=== PATIENT | male | born 1960 | race Caucasian/White ===

== ENCOUNTER 2016-10-17 17:16 | Inpatient (IN) | payer SELFPAY ==
[2016-10-17] MEDS ORDERED: LORAZEPAM INJ 2 MG/1 ML VIAL IV ONE ×3 (18:04→22:17)
[2016-10-17] MEDS ORDERED: LEVETIRACETAM 500 MG TABLET PO ONE (18:40)
--- NOTE | 2016-10-17 18:42 | ER Document Report ---
ED General - General Chief Complaint: Seizure Stated Complaint: POSSIBLE SEIZURE Time Seen by Provider: 10/17/16 18:03 Mode of Arrival: Medic Information source: Patient, Relative Notes: 54-year-old male chronic alcoholic who decided that he does not stop drinking approximately 1 day ago presents after a seizure episode today. Patient struck his face has obvious swelling to his nose. He denies any other specific pain but does have bruising all over. Patient has vomited multiple times patient has no history of seizure disorder TRAVEL OUTSIDE OF THE [place] IN LAST 30 DAYS: No - HPI Onset: Just prior to arrival Onset/Duration: Sudden Quality of pain: Achy Severity: Mild Pain Level: 1 Associated symptoms: Other Exacerbated by: Denies Relieved by: Denies Similar symptoms previously: No Recently seen / treated by doctor: No - Related Data Allergies/Adverse Reactions: No Known Allergies Allergy (Verified 05/07/12 13:43) Home Medications: Current Home Medications Doxycycline Hyclate 20 mg PO BID 10/18/16 [History] Loratadine/Pseudoephedrine Sul [Claritin-D 12 Hour Tablet] 1 tab PO Q12 PRN [History] Multivit-Min/FA/Lycopen/Lutein [Adults 50+ Multivitamin Tablet] 1 tab PO DAILY 10/18/16 [History] Naproxen Sodium [Aleve] 220 mg PO Q12 PRN 10/18/16 [History] Past Medical History - Social History Smoking Status: Never Smoker Cigarette use (# per day): No Chew tobacco use (# tins/day): No Smoking Education Provided: No Frequency of alcohol use: Heavy Drug Abuse: None Family History: Reviewed & Not Pertinent Patient has suicidal ideation: No Patient has homicidal ideation: No Renal/ Medical History: Denies: Hx Peritoneal Dialysis Surgical Hx: Negative - Immunizations Hx Diphtheria, Pertussis, Tetanus Vaccination: No Review of Systems - Review of Systems Notes: REVIEW OF SYSTEMS: CONSTITUTIONAL : Denies fever, chills, or sweats. Denies recent illness. EENT: Admits to facial injuries CARDIOVASCULAR: Denies chest pain. Denies palpitations or racing or irregular heart beat. Denies ankle edema. RESPIRATORY: Denies cough, cold, or chest congestion. Denies shortness of breath, difficulty breathing, or wheezing. GASTROINTESTINAL: Denies abdominal pain or distention. Denies nausea, vomiting , or diarrhea. Denies blood in vomitus, stools, or per rectum. Denies black, tarry stools. Denies constipation. GENITOURINARY: Denies difficulty urinating, painful urination, burning, frequency, blood in urine, or discharge. MUSCULOSKELETAL: Denies back or neck pain or stiffness. Denies joint pain or swelling. SKIN: Denies rash, lesions or sores. HEMATOLOGIC : Denies easy bruising or bleeding. LYMPHATIC: Denies swollen, enlarged glands. NEUROLOGICAL: Admits to seizure PSYCHIATRIC: Denies anxiety or stress. Denies depression, suicidal ideation, or homicidal ideation. ALL OTHER SYSTEMS REVIEWED AND NEGATIVE. Dictation was performed using [employer] voice recognition software PHYSICAL EXAMINATION: GENERAL: Obvious ecchymosis all throughout HEAD: traumatic, normocephalic. EYES: Pupils equal round and reactive to light, extraocular movements intact, sclera anicteric, conjunctiva are normal. ENT: Nasal swelling bilateral dried blood in the nasal passages NECK: Normal range of motion, supple without lymphadenopathy C-collar placed LUNGS: Breath sounds clear to auscultation bilaterally and equal. No wheezes rales or rhonchi. HEART: Regular rate and rhythm without murmurs ABDOMEN: Soft, nontender, nondistended abdomen. No guarding, no rebound. No masses appreciated. Musculoskeletal: Normal range of motion, no pitting or edema. No cyanosis. NEUROLOGICAL: Cranial nerves grossly intact. Normal speech, normal gait. Normal sensory, motor exams PSYCH: Normal mood, normal affect. SKIN: Multiple areas of ecchymosis noted Physical Exam - Vital signs Vitals: Resp BP Pulse Ox 17 143/103 H 95 10/17/16 17:47 10/17/16 17:47 10/17/16 17:47 Course - Re-evaluation Re-evalutation: 10/17/16 18:41 Patient immediately given Ativan on arrival, I would expect admission for this patient given the fact that it occurred secondary to alcohol withdrawal 10/18/16 03:25 low platelets noted , pt put on seizure precautions - Vital Signs Vital signs: Temp Pulse Resp BP Pulse Ox 90 17 106/88 H 100 10/18/16 01:25 10/18/16 01:25 10/18/16 01:25 10/18/16 01:25 - Laboratory Result Diagrams: 10/17/16 20:19 10/17/16 20:19 Laboratory results interpreted by me: 10/17/16 10/17/16 10/17/16 20:19 20:19 20:50 RBC 3.99 L Hgb 13.2 L MCV 101 H Plt Count 28 L* Seg Neutrophils % 84.3 H Lymphocytes % 5.5 L Absolute Lymphocytes 0.3 L Glucose 126 H Calcium 8.2 L Total Bilirubin 4.1 H Direct Bilirubin 1.7 H AST 230 H Alkaline Phosphatase 140 H Urine Protein 30 H Urine Ketones 20 H Urine Blood SMALL H Urine Ascorbic Acid 40 H Critical Care Note - Critical Care Note Total time excluding time spent on procedures (mins): 46 Comments: 46 minutes of critical care time spent in direct contact evaluating and reevaluating the patient, treating symptoms, reviewing labs and studies and speaking with family and consultants excluding any procedures Discharge - Discharge Clinical Impression: Seizure, low platelet Alcohol withdrawal Qualifiers: Complication of substance-induced condition: with delirium Qualified Code(s): F10.231 - Alcohol dependence with withdrawal delirium Nasal fracture Qualifiers: Encounter type: initial encounter Fracture type: closed Qualified Code(s): S02.2XXA - Fracture of nasal bones, initial encounter for closed fracture Condition: Fair Disposition: ADMITTED INPATIENT Admitting Provider: Hospitalist Unit Admitted: Telemetry
--- NOTE | 2016-10-17 19:36 | RADIOLOGY REPORT (SQ) ---
EXAM DESCRIPTION: CT HEAD WITHOUT COMPLETED DATE/TIME: 10/17/2016 7:02 pm REASON FOR STUDY: fall COMPARISON: None. TECHNIQUE: Axial images acquired through the brain without intravenous contrast. Images reviewed wi th bone, brain and subdural windows. Images stored on PACS. All CT scanners at this facility use dose modulation, iterative reconstruction, and/or weight based d osing when appropriate to reduce radiation dose to as low as reasonably achievable (ALARA). [facility]: Dose Right [facility]: CareDose [facility]: Dose Right [facility]: Teradose 4D [facility]: [employer] RADIATION DOSE: 64.61 mGy. LIMITATIONS: None. FINDINGS: VENTRICLES: Normal size and contour. CEREBRUM: No masses. No hemorrhage. No midline shift. Normal mohr/white matter differentiation. N o evidence for acute infarction. CEREBELLUM: No masses. No hemorrhage. No alteration of density. No evidence for acute infarction. EXTRAAXIAL SPACES: No fluid collections. No masses. ORBITS AND GLOBE: No intra- or extraconal masses. Normal contour of globe without masses. CALVARIUM: No fracture. PARANASAL SINUSES: No fluid or mucosal thickening. SOFT TISSUES: No mass or hematoma. OTHER: No other significant finding. IMPRESSION: No acute intracranial finding. TECHNICAL DOCUMENTATION: JOB ID: [id number] Quality ID # [id number]: Final reports with documentation of one or more dose reduction techniques (e.g., Au tomated exposure control, adjustment of the mA and/or kV according to patient size, use of iterative reconstruction technique) 2010 [employer]- All Rights Reserved
--- NOTE | 2016-10-17 19:39 | RADIOLOGY REPORT (SQ) ---
EXAM DESCRIPTION: CT FACIAL AREA WITHOUT COMPLETED DATE/TIME: 10/17/2016 7:02 pm REASON FOR STUDY: fall COMPARISON: None. TECHNIQUE: Noncontrasted images through the facial bones and orbits windowed for bone and soft tissu e. Additional coronal and sagittal reconstructed images reviewed. All images stored on PACS. All CT scanners at this facility use dose modulation, iterative reconstruction, and/or weight based d osing when appropriate to reduce radiation dose to as low as reasonably achievable (ALARA). [facility]: Dose Right [facility]: CareDose [facility]: Dose Right [facility]: Teradose 4D [facility]: [employer] RADIATION DOSE: 30.40 mGy. LIMITATIONS: None. FINDINGS: FACIAL BONES: Small nasal bone fractures. No other fracture or bone lesion. ORBITS: Intact. No fracture. Symmetric intact globes and retroorbital soft tissues. PARANASAL SINUSES: Clear. No significant mucosal thickening, mass or fluid. No nasal polyps. Maxill madhav sinus outlets are patent. SOFT TISSUES: No mass or edema. INFERIOR BRAIN: Limited view. No acute findings. OTHER: No other significant finding. IMPRESSION: Small nasal bone fractures. TECHNICAL DOCUMENTATION: JOB ID: [id number] Quality ID # [id number]: Final reports with documentation of one or more dose reduction techniques (e.g., Au tomated exposure control, adjustment of the mA and/or kV according to patient size, use of iterative reconstruction technique) 2010 [employer]- All Rights Reserved
--- NOTE | 2016-10-17 19:44 | RADIOLOGY REPORT (SQ) ---
EXAM DESCRIPTION: CT CERVICAL SPINE WITHOUT COMPLETED DATE/TIME: 10/17/2016 7:03 pm REASON FOR STUDY: fall COMPARISON: None. TECHNIQUE: Axial images acquired through the cervical spine without intravenous contrast. Images re viewed with lung, soft tissue and bone windows. Reconstructed coronal and sagittal MPR images review ed. Images stored on PACS. All CT scanners at this facility use dose modulation, iterative reconstruction, and/or weight based d osing when appropriate to reduce radiation dose to as low as reasonably achievable (ALARA). [facility]: Dose Right [facility]: CareDose [facility]: Dose Right [facility]: Teradose 4D [facility]: [employer] RADIATION DOSE: 41.42 mGy. LIMITATIONS: None. FINDINGS: ALIGNMENT: Anatomic. MINERALIZATION: Normal. VERTEBRAL BODIES: No fractures or dislocation. DISCS: Multilevel disc space narrowing with osteophytes. FACETS, LATERAL MASSES, POSTERIOR ELEMENTS: Facet arthropathy. No fractures. No dislocation. No ac [place] findings. HARDWARE: None in the spine. VISUALIZED RIBS: No fractures. LUNG APICES AND SOFT TISSUES: No significant or acute findings. OTHER: No other significant finding. IMPRESSION: CHRONIC DEGENERATIVE CHANGES. NO ACUTE FINDINGS. TECHNICAL DOCUMENTATION: JOB ID: [id number] Quality ID # [id number]: Final reports with documentation of one or more dose reduction techniques (e.g., Au tomated exposure control, adjustment of the mA and/or kV according to patient size, use of iterative reconstruction technique) 2010 [employer]- All Rights Reserved
[2016-10-17 20:53] LABS: ABSOLUTE LYMPHOCYTES (AUTO) 0.3 10^3/uL (0.5-4.7); ABSOLUTE MONOCYTES (AUTO) 0.5 10^3/uL (0.1-1.4); ABSOLUTE NEUT (AUTO) 4.5 10^3/uL (1.7-8.2); BASOPHILS % (AUTO) 0.5 % (0-2); EOSINOPHILS % (AUTO) 0.1 % (0-6); HEMATOCRIT 40.3 % (37.9-51.0); HEMOGLOBIN 13.2 g/dL (13.5-17.0); HGB HCT DIFFERENCE -0.7; LYMPHOCYTES % (AUTO) 5.5 % (13-45); MEAN CORPUSCULAR HEMOGLOBIN 33.2 pg (27.0-33.4); MEAN CORPUSCULAR HGB CONC 32.9 g/dL (32.0-36.0); MEAN CORPUSCULAR VOLUME 101 fl (80-97); MONOCYTES % (AUTO) 9.6 % (3-13); RED BLOOD COUNT 3.99 10^6/uL (4.35-5.55); RED CELL DISTRIBUTION WIDTH 13.3 % (11.5-14.0); SEGMENTED NEUTROPHILS % (AUTO) 84.3 % (42-78); WHITE BLOOD COUNT 5.3 10^3/uL (4.0-10.5)
[2016-10-17 20:59] LABS: ALANINE AMINOTRANSFERASE 61 U/L (21-72); ALBUMIN 3.5 g/dL (3.5-5.0); ALKALINE PHOSPHATASE 140 U/L (38-126); ANION GAP 15 (5-19); ASPARTATE AMINO TRANSFERASE 230 U/L (17-59); BILIRUBIN,DIRECT 1.7 mg/dL (0.0-0.4); BILIRUBIN,TOTAL 4.1 mg/dL (0.2-1.3); BLOOD UREA NITROGEN 7 mg/dL (7-20); CALCIUM 8.2 mg/dL (8.4-10.2); CARBON DIOXIDE 24 mmol/L (22-30); CHLORIDE 99 mmol/L (98-107); CREATININE RESULT 0.75 mg/dL (0.52-1.25); GLUCOSE 126 mg/dL (75-110); POTASSIUM 3.8 mmol/L (3.6-5.0); SODIUM 137.6 mmol/L (137-145)
[2016-10-17 21:01] LABS: ALCOHOL < 10 mg/dL (NONE DETECTED)
[2016-10-17 21:12] LABS: APPEARANCE,URINE SLIGHTLY-CLOUDY; BILIRUBIN,URINE NEGATIVE (NEGATIVE); GLUCOSE, URINE NEGATIVE (NEGATIVE); KETONES,URINE 20 mg/dL (NEGATIVE); LEUKOCYTE ESTERASE,URINE NEGATIVE (NEGATIVE); NITRITE,URINE NEGATIVE (NEGATIVE); PROTEIN,URINE 30 mg/dL (NEGATIVE); URINE SPECIFIC GRAVITY 1.016; UROBILINOGEN,URINE NEGATIVE mg/dL (<2.0)
[2016-10-17 21:18] LABS: BACTERIA,URINE 1+ /HPF
[2016-10-17 21:25] LABS: URINE BARBITURATES SCREEN NEGATIVE; URINE METHADONE SCREEN NEGATIVE; URINE OPIATES LOW NEGATIVE; URINE PHENCYCLIDINE SCREEN NEGATIVE
[2016-10-17] MEDS ORDERED: ONDANSETRON HCL INJ/PF 4 MG/2 ML SDV IV PRN (22:24)
[2016-10-17] MEDS ORDERED: MAG HYDROX/AL HYDROX/SIMETH SUSP 30 ML UDCUP PO PRN (22:24)
[2016-10-17] MEDS ORDERED: IPRATROPIUM/ALBUTEROL 0.5-2.5 MG/3 ML AMPUL NEB PRN (22:24)
[2016-10-17] MEDS ORDERED: THIAMINE HCL 100 MG, FOLIC ACID 1 MG in NORMAL SALINE 50 ML IV SCH (22:30)
--- NOTE | 2016-10-17 22:42 | PDOC H&P ---
History of Present Illness Admission Date/PCP: FRANK RIVERA MD Patient complains of: Seizure History of Present Illness: ODALYS GUTIERREZ is a 55 year old male with a past medical history of alcohol dependence who had abruptly discontinued alcohol 48 hours ago after recurrent falls. Patient presents to the emergency room after a seizure resulting in a fall striking his face to the floor resulting in nasal bone fracture by CT. In the emergency room is also found to be postictal, severely tremulous and a platelet count of 28 he is referred to the hospitalist for admission. Patient states he has had alcohol withdrawal in the past. Social History Information Source: Patient Lives with: Grandparent(s) Smoking Status: Never Smoker Frequency of Alcohol Use: Heavy - Advance Directive Resuscitation Status: Full Code Family History Family History: Hypertension Parental Family History Reviewed: Yes Children Family History Reviewed: Yes Sibling(s) Family History Reviewed.: Yes Medication/Allergy Home Medications: Disulfiram [Antabuse 250 Mg Tablet] 250 mg PO DAILY 05/07/12 Tramadol HCl [Ultram 50 mg Tablet] 50 mg PO ASDIR PRN #20 tablet 05/07/12 Allergies/Adverse Reactions: No Known Allergies Allergy (Verified 05/07/12 13:43) Review of Systems Constitutional: PRESENT: anorexia, weakness Eyes: PRESENT: other - Conjunctivitis Ears: ABSENT: hearing changes Cardiovascular: ABSENT: chest pain, dyspnea on exertion, edema, orthropnea, palpitations Respiratory: ABSENT: cough, hemoptysis Gastrointestinal: ABSENT: abdominal pain, constipation, diarrhea, hematemesis, hematochezia, nausea, vomiting Genitourinary: ABSENT: dysuria, hematuria Musculoskeletal: PRESENT: other - Ataxia Integumentary: PRESENT: other - Ecchymosis of various stages of healing throughout Neurological: PRESENT: other - Ataxia Psychiatric: PRESENT: anxiety Hematologic/Lymphatic: PRESENT: easy bruising Physical Exam Vital Signs: Temp Pulse Resp BP Pulse Ox 109 H 20 136/94 H 95 10/17/16 18:40 10/17/16 18:40 10/17/16 18:40 10/17/16 18:40 Intake & Output 10/16/16 10/17/16 10/18/16 11:59 11:59 11:59 Weight 72.575 kg General appearance: PRESENT: cooperative, disheveled, severe distress, thin Head exam: PRESENT: other - Trauma to the face with periorbital edema, swollen nose with a right sided deviation Eye exam: PRESENT: EOMI, periorbital swelling, PERRLA, other - Purulent discharge to the conjunctiva bilaterally Ear exam: PRESENT: normal external ear exam Mouth exam: PRESENT: moist, tongue midline Neck exam: ABSENT: carotid bruit, JVD, lymphadenopathy, thyromegaly Respiratory exam: PRESENT: clear to auscultation zoran. ABSENT: rales, rhonchi, wheezes Cardiovascular exam: PRESENT: RRR. ABSENT: diastolic murmur, rubs, systolic murmur Pulses: PRESENT: normal dorsalis pedis pul Vascular exam: PRESENT: normal capillary refill GI/Abdominal exam: PRESENT: normal bowel sounds, soft. ABSENT: distended, guarding, mass, organolmegaly, rebound, tenderness Rectal exam: PRESENT: deferred Extremities exam: PRESENT: full ROM. ABSENT: calf tenderness, clubbing, pedal edema Musculoskeletal exam: PRESENT: other - Poor coordination and tremor throughout Neurological exam: PRESENT: alert, ataxia, CN II-XII grossly intact Psychiatric exam: PRESENT: agitated, anxious Skin exam: PRESENT: intact, other - Ecchymosis throughout that various stages of healing denying abuse Results Laboratory Results: 10/17/16 20:19 10/17/16 20:19 10/17/16 10/17/16 10/17/16 20:19 20:19 20:50 WBC 5.3 RBC 3.99 L Hgb 13.2 L Hct 40.3 MCV 101 H MCH 33.2 MCHC 32.9 RDW 13.3 Plt Count 28 L* Seg Neutrophils % 84.3 H Lymphocytes % 5.5 L Monocytes % 9.6 Eosinophils % 0.1 Basophils % 0.5 Absolute Neutrophils 4.5 Absolute Lymphocytes 0.3 L Absolute Monocytes 0.5 Absolute Eosinophils 0.0 Absolute Basophils 0.0 Sodium 137.6 Potassium 3.8 Chloride 99 Carbon Dioxide 24 Anion Gap 15 BUN 7 Creatinine 0.75 Est GFR ( Amer) > 60 Est GFR (Non-Af Amer) > 60 Glucose 126 H Calcium 8.2 L Total Bilirubin 4.1 H AST 230 H ALT 61 Alkaline Phosphatase 140 H Total Protein 7.0 Albumin 3.5 Urine Color YELLOW Urine Appearance SLIGHTLY-CLOUDY Urine pH 5.0 Ur Specific Mineral 1.016 Urine Protein 30 H Urine Glucose (UA) NEGATIVE Urine Ketones 20 H Urine Blood SMALL H Urine Nitrite NEGATIVE Ur Leukocyte Esterase NEGATIVE Impressions: Cervical Spine CT 10/17/16 18:04 IMPRESSION: CHRONIC DEGENERATIVE CHANGES. NO ACUTE FINDINGS. Facial Bones CT 10/17/16 18:04 IMPRESSION: Small nasal bone fractures. Head CT 10/17/16 18:04 IMPRESSION: No acute intracranial finding. Assessment & Plan - Diagnosis (1) Alcohol withdrawal Qualifiers: Complication of substance-induced condition: with delirium Qualified Code(s): F10.231 - Alcohol dependence with withdrawal delirium Is this a current diagnosis for this admission?: YesPlan: Patient initiated abrupt cessation of heavy alcohol consumption 48 hours ago resulting in alcohol withdrawal seizure. He is placed on D5 half-normal with 20 potassium, thiamine and folate, scheduled and as needed Ativan. Consider referral to outpatient rehab. (2) Thrombocytopenia Is this a current diagnosis for this admission?: YesPlan: Undoubtedly secondary to alcohol. Reevaluate CBC (3) Ataxia Is this a current diagnosis for this admission?: YesPlan: Concern for neuropathy and Wernicke's encephalopathy. Dextrose, thiamine and folate initiated will require physical therapy. (4) Nasal fracture Is this a current diagnosis for this admission?: YesPlan: Supportive care, ENT follow-up (5) Seizure Is this a current diagnosis for this admission?: YesPlan: Secondary to abrupt alcohol cessation he has been loaded with Keppra will continue scheduled Ativan. - Time Time Spent: 50 to 70 Minutes - Inpatient Certification Medical Necessity: Need Close Monitoring Due to Risk of Patient Decompensation
[2016-10-17 23:14] LABS: PROTHROMBIN TIME 15.4 SEC (11.4-15.4)
[2016-10-17 23:21] LABS: PHOSPHORUS 2.8 mg/dL (2.5-4.5)
[2016-10-17] MEDS ORDERED: POTASSI CL 20 MEQ/D5-1/2NS 1L 1,000 ML IV ONE (23:59)
[2016-10-18] MEDS: LORAZEPAM INJ 2 MG/1 ML VIAL IV SCH ×5 (00:05→23:43)
[2016-10-18] MEDS ORDERED: FOLIC ACID INJ 5 MG/1 ML 10 ML VIAL ONE (03:02)
[2016-10-18] MEDS ORDERED: THIAMINE HCL INJ 200 MG/2 ML VIAL ONE (03:03)
[2016-10-18 05:14] LABS: ABSOLUTE LYMPHOCYTES (AUTO) 0.6 10^3/uL (0.5-4.7); ABSOLUTE MONOCYTES (AUTO) 0.5 10^3/uL (0.1-1.4); ABSOLUTE NEUT (AUTO) 2.6 10^3/uL (1.7-8.2); BASOPHILS % (AUTO) 0.5 % (0-2); EOSINOPHILS % (AUTO) 0.2 % (0-6); HEMATOCRIT 38.3 % (37.9-51.0); HEMOGLOBIN 12.8 g/dL (13.5-17.0); HGB HCT DIFFERENCE 0.1; LYMPHOCYTES % (AUTO) 16.5 % (13-45); MEAN CORPUSCULAR HEMOGLOBIN 33.7 pg (27.0-33.4); MEAN CORPUSCULAR HGB CONC 33.4 g/dL (32.0-36.0); MEAN CORPUSCULAR VOLUME 101 fl (80-97); MONOCYTES % (AUTO) 13.1 % (3-13); RED CELL DISTRIBUTION WIDTH 12.8 % (11.5-14.0); SEGMENTED NEUTROPHILS % (AUTO) 69.7 % (42-78); WHITE BLOOD COUNT 3.7 10^3/uL (4.0-10.5)
[2016-10-18 05:20] LABS: ALANINE AMINOTRANSFERASE 57 U/L (21-72); ALBUMIN 3.1 g/dL (3.5-5.0); ALKALINE PHOSPHATASE 120 U/L (38-126); ANION GAP 9 (5-19); ASPARTATE AMINO TRANSFERASE 216 U/L (17-59); BILIRUBIN,DIRECT 1.5 mg/dL (0.0-0.4); BILIRUBIN,TOTAL 3.6 mg/dL (0.2-1.3); BLOOD UREA NITROGEN 8 mg/dL (7-20); CARBON DIOXIDE 25 mmol/L (22-30); CHLORIDE 104 mmol/L (98-107); CREATININE RESULT 0.71 mg/dL (0.52-1.25); GLUCOSE 119 mg/dL (75-110); POTASSIUM 3.5 mmol/L (3.6-5.0); SODIUM 138.4 mmol/L (137-145); TOTAL PROTEIN 6.2 g/dL (6.3-8.2)
[2016-10-18] MEDS: DOCUSATE SODIUM 100 MG CAPSULE PO SCH ×2 (09:50→17:55)
[2016-10-18 16:55] LABS: ADD HIVPANEL? NO; HIV (1 AND 2) ANTIBODY NEGATIVE (NEGATIVE)
--- NOTE | 2016-10-18 17:06 | PDOC PROGRESS REPORT ---
Subjective Progress Note for:: 10/18/16 Subjective:: Patient is quite tremulous when I see him. Report that he would like to stop drinking. His last drink was on . As chest pain, shortness of breath, rash, diarrhea, upper respiratory infection. Physical Exam Vital Signs: Temp Pulse Resp BP Pulse Ox 98.6 F 92 18 114/72 94 10/18/16 11:54 10/18/16 11:54 10/18/16 11:54 10/18/16 11:54 10/18/16 11:54 Intake & Output 10/17/16 10/18/16 10/19/16 06:59 06:59 06:59 Intake Total 51 Balance 51 Weight 77.3 kg Exam: GENERAL: older than stated age appearing, chronically ill-appearing HEENT: Bilateral orbital ecchymosis, nasal bridge deformity with dried blood, perioral area with dried blood, asymmetric tongue swelling more right sided than left with associated bite desmond, slight icteric, moist mucous membranes, no JVD, midline trachea RESPIRATORY: Clear to auscultation bilaterally, no wheezes, no rhonchi CARDIAC: Regular rate and rhythm, no murmurs/gallops/rubs ABDOMEN: Soft, nondistended, NTTP hyperactive bowel sounds, no rebound, no guarding EXTREMETIES: No edema, cyanosis, clubbing NEUROLOGIC: Alert, oriented to person/place, CN's grossly intact, tremulous PSYCH: Normal mood, normal affect Results Laboratory Results: 10/18/16 03:58 10/18/16 03:58 10/17/16 10/18/16 10/18/16 23:00 03:58 03:58 WBC 3.7 L RBC 3.80 L Hgb 12.8 L Hct 38.3 MCV 101 H MCH 33.7 H MCHC 33.4 RDW 12.8 Plt Count 24 L* Seg Neutrophils % 69.7 Lymphocytes % 16.5 Monocytes % 13.1 H Eosinophils % 0.2 Basophils % 0.5 Absolute Neutrophils 2.6 Absolute Lymphocytes 0.6 Absolute Monocytes 0.5 Absolute Eosinophils 0.0 Absolute Basophils 0.0 Sodium 138.4 Potassium 3.5 L Chloride 104 Carbon Dioxide 25 Anion Gap 9 BUN 8 Creatinine 0.71 Est GFR ( Amer) > 60 Est GFR (Non-Af Amer) > 60 Glucose 119 H Calcium 8.0 L Phosphorus 2.8 Magnesium 2.0 Total Bilirubin 3.6 H AST 216 H ALT 57 Alkaline Phosphatase 120 Total Protein 6.2 L Albumin 3.1 L Impressions: Cervical Spine CT 10/17/16 18:04 IMPRESSION: CHRONIC DEGENERATIVE CHANGES. NO ACUTE FINDINGS. Facial Bones CT 10/17/16 18:04 IMPRESSION: Small nasal bone fractures. Head CT 10/17/16 18:04 IMPRESSION: No acute intracranial finding. Assessment & Plan - Diagnosis (1) Alcohol withdrawal seizure with complication Qualifiers: Complication of substance-induced condition: with perceptual disturbance Qualified Code(s): F10.232 - Alcohol dependence with withdrawal with perceptual disturbance Is this a current diagnosis for this admission?: YesPlan: Patient on scheduled Ativan as well as as needed Ativan. Patient on thiamine, folic acid, and multivitamin. Concern for arrhythmia continue telemetry monitoring Monitor electrolytes, seizure precautions and sitter. (2) Leukopenia Qualifiers: Leukopenia type: unspecified Qualified Code(s): D72.819 - Decreased white blood cell count, unspecified Is this a current diagnosis for this admission?: YesPlan: 2/2 to alcohol abuse (3) Ataxia Is this a current diagnosis for this admission?: YesPlan: #4 Wernicke's consider repeating CT of the head (4) Nasal fracture Qualifiers: Encounter type: initial encounter Fracture type: closed Qualified Code(s): S02.2XXA - Fracture of nasal bones, initial encounter for closed fracture Is this a current diagnosis for this admission?: YesPlan: Supportive care (5) Thrombocytopenia Is this a current diagnosis for this admission?: YesPlan: Patient does have petechia on his chest, but none on his abdomen or lower extremities as one would expect in ITP. He has had no antecedent illness. Patient has thrombocytopenia likely secondary to his severe alcohol abuse. Continue seizure precautions and supportive care. (6) Alcoholic cirrhosis of liver without ascites Is this a current diagnosis for this admission?: YesPlan: MELD score of 12 Encourage patient to remain abstinent. - Time Time Spent with patient: 25-34 minutes Medications reviewed and adjusted accordingly: Yes
[2016-10-18] MEDS: LORAZEPAM INJ 2 MG/1 ML VIAL IV PRN (20:19)
[2016-10-19] MEDS: NORMAL SALINE 1000 ML 1,000 ML IV PRN (02:06)
[2016-10-19] MEDS: LORAZEPAM INJ 2 MG/1 ML VIAL IV PRN ×5 (02:06→16:14)
[2016-10-19 05:24] LABS: ABSOLUTE LYMPHOCYTES (AUTO) 0.7 10^3/uL (0.5-4.7); ABSOLUTE MONOCYTES (AUTO) 0.4 10^3/uL (0.1-1.4); ABSOLUTE NEUT (AUTO) 1.8 10^3/uL (1.7-8.2); BASOPHILS % (AUTO) 0.5 % (0-2); EOSINOPHILS % (AUTO) 0.9 % (0-6); HEMATOCRIT 39.9 % (37.9-51.0); HEMOGLOBIN 13.4 g/dL (13.5-17.0); HGB HCT DIFFERENCE 0.3; LYMPHOCYTES % (AUTO) 23.1 % (13-45); MEAN CORPUSCULAR HGB CONC 33.6 g/dL (32.0-36.0); MEAN CORPUSCULAR VOLUME 101 fl (80-97); MONOCYTES % (AUTO) 14.2 % (3-13); RED BLOOD COUNT 3.94 10^6/uL (4.35-5.55); RED CELL DISTRIBUTION WIDTH 12.6 % (11.5-14.0); SEGMENTED NEUTROPHILS % (AUTO) 61.3 % (42-78); WHITE BLOOD COUNT 2.9 10^3/uL (4.0-10.5)
[2016-10-19 05:30] LABS: PROTHROMBIN TIME 16.5 SEC (11.4-15.4)
[2016-10-19 05:39] LABS: ALANINE AMINOTRANSFERASE 60 U/L (21-72); ALBUMIN 3.1 g/dL (3.5-5.0); ALKALINE PHOSPHATASE 127 U/L (38-126); ANION GAP 11 (5-19); ASPARTATE AMINO TRANSFERASE 232 U/L (17-59); BILIRUBIN,DIRECT 2.1 mg/dL (0.0-0.4); BILIRUBIN,TOTAL 4.1 mg/dL (0.2-1.3); BLOOD UREA NITROGEN 8 mg/dL (7-20); CALCIUM 7.9 mg/dL (8.4-10.2); CARBON DIOXIDE 25 mmol/L (22-30); CHLORIDE 107 mmol/L (98-107); CREATININE RESULT 0.63 mg/dL (0.52-1.25); GLUCOSE 74 mg/dL (75-110); MAGNESIUM 1.9 mg/dL (1.6-2.3); PHOSPHORUS 2.2 mg/dL (2.5-4.5); POTASSIUM 3.5 mmol/L (3.6-5.0); SODIUM 142.6 mmol/L (137-145); TOTAL PROTEIN 6.4 g/dL (6.3-8.2)
[2016-10-19] MEDS: LORAZEPAM INJ 2 MG/1 ML VIAL IV SCH ×4 (06:40→22:46)
[2016-10-19] MEDS: DOCUSATE SODIUM 100 MG CAPSULE PO SCH ×2 (09:31→18:10)
[2016-10-19] MEDS: MAGNESIUM OXIDE 400 MG TABLET PO SCH ×3 (09:31→16:15)
[2016-10-19] MEDS ORDERED: THIAMINE HCL 100 MG, FOLIC ACID 1 MG in NORMAL SALINE 50 ML IV SCH (10:00)
[2016-10-19] MEDS ORDERED: THIAMINE HCL 100 MG TABLET PO SCH (10:00)
[2016-10-19] MEDS: PHOSPHORUS #1 250 MG TABLET PO SCH ×2 (10:31→16:19)
--- NOTE | 2016-10-19 14:27 | RADIOLOGY REPORT (SQ) ---
EXAM DESCRIPTION: CT HEAD WITHOUT COMPLETED DATE/TIME: 10/19/2016 2:14 pm REASON FOR STUDY: ams, fall with thrombocytopenia COMPARISON: 10/17/2016 TECHNIQUE: Axial images acquired through the brain without intravenous contrast. Images reviewed wi th bone, brain and subdural windows. Images stored on PACS. All CT scanners at this facility use dose modulation, iterative reconstruction, and/or weight based d osing when appropriate to reduce radiation dose to as low as reasonably achievable (ALARA). [facility]: Dose Right [facility]: CareDose [facility]: Dose Right [facility]: Teradose 4D [facility]: [employer] RADIATION DOSE: 64.61 mGy. LIMITATIONS: None. FINDINGS: VENTRICLES: Normal size and contour. CEREBRUM: No masses. No hemorrhage. No midline shift. Normal mohr/white matter differentiation. N o evidence for acute infarction. CEREBELLUM: No masses. No hemorrhage. No alteration of density. No evidence for acute infarction. EXTRAAXIAL SPACES: No fluid collections. No masses. ORBITS AND GLOBE: No intra- or extraconal masses. Normal contour of globe without masses. CALVARIUM: No fracture. PARANASAL SINUSES: No fluid or mucosal thickening. SOFT TISSUES: No mass or hematoma. OTHER: No other significant finding. IMPRESSION: NORMAL BRAIN CT WITHOUT CONTRAST. TECHNICAL DOCUMENTATION: JOB ID: [id number] Quality ID # [id number]: Final reports with documentation of one or more dose reduction techniques (e.g., Au tomated exposure control, adjustment of the mA and/or kV according to patient size, use of iterative reconstruction technique) 2010 [employer]- All Rights Reserved
--- NOTE | 2016-10-19 15:17 | EKG REPORT ---
SEVERITY:- NORMAL ECG - SINUS RHYTHM : Confirmed by: Juan Alston 19-Oct-2016 15:15:48
--- NOTE | 2016-10-19 16:22 | PDOC PROGRESS REPORT ---
Subjective Progress Note for:: 10/19/16 Subjective:: Unable to obtain review of systems secondary to alcohol withdrawl. Physical Exam Vital Signs: Temp Pulse Resp BP Pulse Ox 97.3 F 91 16 132/73 H 96 10/19/16 11:03 10/19/16 11:03 10/19/16 11:03 10/19/16 11:03 10/19/16 11:03 Intake & Output 10/18/16 10/19/16 10/20/16 06:59 06:59 06:59 Intake Total 51 1020 620 Output Total 500 Balance 51 1020 120 Weight 77.3 kg 74.4 kg Exam: GENERAL: older than stated age appearing, chronically ill-appearing HEENT: Bilateral orbital ecchymosis, nasal bridge deformity with dried blood, perioral area with dried blood, slight icteric, moist mucous membranes, no JVD, midline trachea RESPIRATORY: Clear to auscultation bilaterally, no wheezes, no rhonchi CARDIAC: Regular rate and rhythm, no murmurs/gallops/rubs ABDOMEN: Soft, nondistended, NTTP hyperactive bowel sounds, no rebound, no guarding EXTREMETIES: No edema, cyanosis, clubbing NEUROLOGIC: Alert, oriented to person alone, CN's grossly intact, tremulous PSYCH: Normal mood, normal affect Results Laboratory Results: 10/19/16 04:57 10/19/16 04:57 10/19/16 10/19/16 04:57 04:57 WBC 2.9 L RBC 3.94 L Hgb 13.4 L Hct 39.9 MCV 101 H MCH 34.0 H MCHC 33.6 RDW 12.6 Plt Count 31 L Seg Neutrophils % 61.3 Lymphocytes % 23.1 Monocytes % 14.2 H Eosinophils % 0.9 Basophils % 0.5 Absolute Neutrophils 1.8 Absolute Lymphocytes 0.7 Absolute Monocytes 0.4 Absolute Eosinophils 0.0 Absolute Basophils 0.0 Sodium 142.6 Potassium 3.5 L Chloride 107 Carbon Dioxide 25 Anion Gap 11 BUN 8 Creatinine 0.63 Est GFR ( Amer) > 60 Est GFR (Non-Af Amer) > 60 Glucose 74 L Calcium 7.9 L Phosphorus 2.2 L Magnesium 1.9 Total Bilirubin 4.1 H AST 232 H ALT 60 Alkaline Phosphatase 127 H Total Protein 6.4 Albumin 3.1 L Impressions: Cervical Spine CT 10/17/16 18:04 IMPRESSION: CHRONIC DEGENERATIVE CHANGES. NO ACUTE FINDINGS. Facial Bones CT 10/17/16 18:04 IMPRESSION: Small nasal bone fractures. Head CT 10/19/16 00:00 IMPRESSION: NORMAL BRAIN CT WITHOUT CONTRAST. Assessment & Plan - Diagnosis (1) Alcohol withdrawal seizure with complication Qualifiers: Complication of substance-induced condition: with perceptual disturbance Qualified Code(s): F10.232 - Alcohol dependence with withdrawal with perceptual disturbance Is this a current diagnosis for this admission?: YesPlan: Patient continues to have Perceptual disturbance including hallucinations. Patient on scheduled Ativan as well as as needed Ativan. Patient on thiamine, folic acid, and multivitamin. Monitor electrolytes, seizure precautions and sitter. (2) Leukopenia Qualifiers: Leukopenia type: unspecified Qualified Code(s): D72.819 - Decreased white blood cell count, unspecified Is this a current diagnosis for this admission?: YesPlan: 2/2 to alcohol abuse Improving (3) Ataxia Is this a current diagnosis for this admission?: YesPlan: Concern for Wernicke's. Repeat CT reveals no delayed bleeding. Place on high dose IV thiamine. (4) Nasal fracture Qualifiers: Encounter type: initial encounter Fracture type: closed Qualified Code(s): S02.2XXA - Fracture of nasal bones, initial encounter for closed fracture Is this a current diagnosis for this admission?: Yes (5) Thrombocytopenia Is this a current diagnosis for this admission?: YesPlan: Patient has thrombocytopenia likely secondary to his severe alcohol abuse. Continue seizure precautions and supportive care. Have considered other eitologies although less likely including ITP, TTP, drug induced. HIV is negative. (6) Alcoholic cirrhosis of liver without ascites Is this a current diagnosis for this admission?: YesPlan: MELD score of 14. This give patient a 90 day mortality rate of 6%. Encourage patient to remain abstinent. - Time Time Spent with patient: 25-34 minutes Medications reviewed and adjusted accordingly: Yes
[2016-10-19] MEDS: TEMAZEPAM 15 MG CAPSULE PO SCH (22:11)
[2016-10-20] MEDS: LORAZEPAM INJ 2 MG/1 ML VIAL IV PRN (04:14)
[2016-10-20 05:25] LABS: ABSOLUTE LYMPHOCYTES (AUTO) 0.5 10^3/uL (0.5-4.7); ABSOLUTE MONOCYTES (AUTO) 0.4 10^3/uL (0.1-1.4); ABSOLUTE NEUT (AUTO) 2.1 10^3/uL (1.7-8.2); EOSINOPHILS % (AUTO) 1.2 % (0-6); HEMATOCRIT 39.4 % (37.9-51.0); HEMOGLOBIN 13.5 g/dL (13.5-17.0); HGB HCT DIFFERENCE 1.1; LYMPHOCYTES % (AUTO) 17.6 % (13-45); MEAN CORPUSCULAR HGB CONC 34.1 g/dL (32.0-36.0); MEAN CORPUSCULAR VOLUME 100 fl (80-97); RED BLOOD COUNT 3.96 10^6/uL (4.35-5.55); RED CELL DISTRIBUTION WIDTH 12.5 % (11.5-14.0); SEGMENTED NEUTROPHILS % (AUTO) 68.2 % (42-78); WHITE BLOOD COUNT 3.1 10^3/uL (4.0-10.5)
[2016-10-20 05:36] LABS: ALANINE AMINOTRANSFERASE 57 U/L (21-72); ALKALINE PHOSPHATASE 126 U/L (38-126); ANION GAP 12 (5-19); ASPARTATE AMINO TRANSFERASE 180 U/L (17-59); BILIRUBIN,DIRECT 2.4 mg/dL (0.0-0.4); BILIRUBIN,TOTAL 3.8 mg/dL (0.2-1.3); BLOOD UREA NITROGEN 6 mg/dL (7-20); CALCIUM 7.6 mg/dL (8.4-10.2); CARBON DIOXIDE 24 mmol/L (22-30); CHLORIDE 103 mmol/L (98-107); CREATININE RESULT 0.58 mg/dL (0.52-1.25); GLUCOSE 129 mg/dL (75-110); POTASSIUM 3.4 mmol/L (3.6-5.0); SODIUM 138.8 mmol/L (137-145); TOTAL PROTEIN 6.4 g/dL (6.3-8.2)
[2016-10-20] MEDS: LORAZEPAM INJ 2 MG/1 ML VIAL IV SCH ×3 (05:55→17:22)
[2016-10-20] MEDS ORDERED: NORMAL SALINE IV ONE (08:00)
[2016-10-20] MEDS ORDERED: THIAMINE HCL IV ONE (08:00)
[2016-10-20] MEDS ORDERED: ONDANSETRON HCL INJ/PF 4 MG/2 ML SDV IV PRN (08:23)
[2016-10-20] MEDS ORDERED: MAG HYDROX/AL HYDROX/SIMETH SUSP 30 ML UDCUP PO PRN (08:25)
[2016-10-20] MEDS ORDERED: POTASSIUM CHLORIDE 10 MEQ TABLET.SA PO ONE (08:30)
[2016-10-20] MEDS: NORMAL SALINE 1000 ML 1,000 ML IV PRN (10:12)
[2016-10-20] MEDS: PHOSPHORUS #1 250 MG TABLET PO SCH ×3 (10:12→17:21)
[2016-10-20] MEDS: DOCUSATE SODIUM 100 MG CAPSULE PO SCH ×2 (10:12→17:22)
[2016-10-20] MEDS: MAGNESIUM OXIDE 400 MG TABLET PO SCH ×3 (10:12→17:22)
[2016-10-20] MEDS: FOLIC ACID 1 MG TABLET PO SCH (10:12)
[2016-10-20] MEDS: THIAMINE HCL 500 MG in NORMAL SALINE 50 ML IV SCH (10:47)
--- NOTE | 2016-10-20 16:51 | PDOC PROGRESS REPORT ---
Subjective Progress Note for:: 10/20/16 Subjective:: Patient denies chest pain, shortness of breath, headache, nausea, fever, chills , constipation, diarrhea. Physical Exam Vital Signs: Temp Pulse Resp BP Pulse Ox 98.2 F 72 14 136/85 H 96 10/20/16 00:00 10/20/16 00:00 10/20/16 00:00 10/20/16 00:00 10/20/16 00:00 Intake & Output 10/19/16 10/20/16 10/21/16 06:59 06:59 06:59 Intake Total 1020 3049 Output Total 1200 Balance 1020 1849 Weight 74.4 kg 74.2 kg Exam: GENERAL: older than stated age appearing, chronically ill-appearing HEENT: Bilateral orbital ecchymosis, nasal bridge deformity with dried blood, no scleral icterus, moist mucous membranes, no JVD, midline trachea RESPIRATORY: Clear to auscultation bilaterally, no wheezes, no rhonchi CARDIAC: Regular rate and rhythm, no murmurs/gallops/rubs ABDOMEN: Soft, nondistended, NTTP hyperactive bowel sounds, no rebound, no guarding EXTREMETIES: No edema, cyanosis, clubbing NEUROLOGIC: Alert, oriented to person, place, but not year, CN's grossly intact PSYCH: Normal mood, normal affect Results Laboratory Results: 10/20/16 05:09 10/20/16 05:09 10/20/16 10/20/16 10/20/16 05:09 05:09 05:09 WBC 3.1 L RBC 3.96 L Hgb 13.5 Hct 39.4 MCV 100 H MCH 34.0 H MCHC 34.1 RDW 12.5 Plt Count 34 L Seg Neutrophils % 68.2 Lymphocytes % 17.6 Monocytes % 12.0 Eosinophils % 1.2 Basophils % 1.0 Absolute Neutrophils 2.1 Absolute Lymphocytes 0.5 Absolute Monocytes 0.4 Absolute Eosinophils 0.0 Absolute Basophils 0.0 Sodium 138.8 Potassium 3.4 L Chloride 103 Carbon Dioxide 24 Anion Gap 12 BUN 6 L Creatinine 0.58 Est GFR ( Amer) > 60 Est GFR (Non-Af Amer) > 60 Glucose 129 H Calcium 7.6 L Total Bilirubin 3.8 H AST 180 H ALT 57 Alkaline Phosphatase 126 Ammonia < 8.7 L Total Protein 6.4 Albumin 3.0 L Impressions: Cervical Spine CT 10/17/16 18:04 IMPRESSION: CHRONIC DEGENERATIVE CHANGES. NO ACUTE FINDINGS. Facial Bones CT 10/17/16 18:04 IMPRESSION: Small nasal bone fractures. Head CT 10/19/16 00:00 IMPRESSION: NORMAL BRAIN CT WITHOUT CONTRAST. Assessment & Plan - Diagnosis (1) Alcohol withdrawal seizure with complication Qualifiers: Complication of substance-induced condition: with perceptual disturbance Qualified Code(s): F10.232 - Alcohol dependence with withdrawal with perceptual disturbance Is this a current diagnosis for this admission?: YesPlan: Patient continues to have intermittant perceptual disturbance including hallucinations. Patient on scheduled Ativan as well as as needed Ativan. Patient on thiamine, folic acid, and multivitamin. Monitor electrolytes, seizure precautions and sitter. (2) Leukopenia Qualifiers: Leukopenia type: unspecified Qualified Code(s): D72.819 - Decreased white blood cell count, unspecified Is this a current diagnosis for this admission?: YesPlan: / to alcohol abuse Improving (3) Ataxia Is this a current diagnosis for this admission?: YesPlan: Concern for Wernicke's. Repeat CT reveals no delayed bleeding. On high dose IV thiamine for the next three days. Consult PT (4) Nasal fracture Qualifiers: Encounter type: initial encounter Fracture type: closed Qualified Code(s): S02.2XXA - Fracture of nasal bones, initial encounter for closed fracture Is this a current diagnosis for this admission?: Yes (5) Thrombocytopenia Is this a current diagnosis for this admission?: YesPlan: Patient has thrombocytopenia likely secondary to his severe alcohol abuse. Continue seizure precautions and supportive care. Have considered other eitologies although less likely including ITP, TTP, drug induced. HIV is negative. (6) Alcoholic cirrhosis of liver without ascites Is this a current diagnosis for this admission?: YesPlan: MELD score of 14. This give patient a 90 day mortality rate of 6%. Encourage patient to remain abstinent. - Time Time Spent with patient: 25-34 minutes Medications reviewed and adjusted accordingly: Yes Anticipated discharge: Home Within: within 72 hours
[2016-10-20 17:07] LABS: PATH REVIEW PATHOLOGIST REVIEWED
[2016-10-21] MEDS: LORAZEPAM INJ 2 MG/1 ML VIAL IV SCH ×2 (00:23→05:19)
[2016-10-21] MEDS: TEMAZEPAM 15 MG CAPSULE PO SCH ×2 (00:24→22:14)
[2016-10-21 05:35] LABS: ALANINE AMINOTRANSFERASE 55 U/L (21-72); ALBUMIN 3.3 g/dL (3.5-5.0); ALKALINE PHOSPHATASE 151 U/L (38-126); ANION GAP 14 (5-19); ASPARTATE AMINO TRANSFERASE 136 U/L (17-59); BILIRUBIN,DIRECT 2.3 mg/dL (0.0-0.4); BILIRUBIN,TOTAL 3.7 mg/dL (0.2-1.3); BLOOD UREA NITROGEN 7 mg/dL (7-20); CALCIUM 7.9 mg/dL (8.4-10.2); CARBON DIOXIDE 25 mmol/L (22-30); CHLORIDE 102 mmol/L (98-107); CREATININE RESULT 0.57 mg/dL (0.52-1.25); GLUCOSE 96 mg/dL (75-110); POTASSIUM 3.2 mmol/L (3.6-5.0); SODIUM 140.9 mmol/L (137-145); TOTAL PROTEIN 6.3 g/dL (6.3-8.2)
[2016-10-21] MEDS ORDERED: POTASSIUM CHLORIDE 10 MEQ TABLET.SA PO ONE (08:00)
[2016-10-21] MEDS: MAGNESIUM OXIDE 400 MG TABLET PO SCH ×3 (10:11→17:44)
[2016-10-21] MEDS: DOCUSATE SODIUM 100 MG CAPSULE PO SCH ×2 (10:11→17:45)
[2016-10-21] MEDS: FOLIC ACID 1 MG TABLET PO SCH (10:11)
[2016-10-21] MEDS: THIAMINE HCL 500 MG in NORMAL SALINE 50 ML IV SCH (10:11)
[2016-10-21] MEDS: PHOSPHORUS #1 250 MG TABLET PO SCH ×3 (10:11→15:35)
[2016-10-21] MEDS: POTASSIUM CHLORIDE 10 MEQ TABLET.SA PO SCH (11:00)
[2016-10-21] MEDS ORDERED: LORAZEPAM INJ 2 MG/1 ML VIAL IV SCH (12:00)
--- NOTE | 2016-10-21 16:14 | PDOC PROGRESS REPORT ---
Subjective Progress Note for:: 10/21/16 Subjective:: Patient denies chest pain, shortness of breath, headache, nausea, fever, chills , constipation, diarrhea. Physical Exam Vital Signs: Temp Pulse Resp BP Pulse Ox 98.0 F 83 14 129/81 H 97 10/21/16 00:07 10/21/16 00:07 10/21/16 00:07 10/21/16 00:07 10/21/16 00:07 Intake & Output 10/20/16 10/21/16 10/22/16 06:59 06:59 06:59 Intake Total 3049 1600 Output Total 1200 1300 Balance 1849 300 Weight 74.2 kg 73.2 kg Exam: GENERAL: older than stated age appearing, chronically ill-appearing HEENT: Bilateral orbital ecchymosis, nasal bridge deformity with dried blood, no scleral icterus, moist mucous membranes, no JVD, midline trachea RESPIRATORY: Clear to auscultation bilaterally, no wheezes, no rhonchi CARDIAC: Regular rate and rhythm, no murmurs/gallops/rubs ABDOMEN: Soft, nondistended, NTTP hyperactive bowel sounds, no rebound, no guarding EXTREMETIES: No edema, cyanosis, clubbing; right forearm palpable cord with slight erythema around IV site NEUROLOGIC: Alert, oriented to person, place, but not year, CN's grossly intact PSYCH: Normal mood, normal affect Results Laboratory Results: 10/20/16 05:09 10/21/16 04:59 10/21/16 04:59 Sodium 140.9 Potassium 3.2 L Chloride 102 Carbon Dioxide 25 Anion Gap 14 BUN 7 Creatinine 0.57 Est GFR ( Amer) > 60 Est GFR (Non-Af Amer) > 60 Glucose 96 Calcium 7.9 L Total Bilirubin 3.7 H AST 136 H ALT 55 Alkaline Phosphatase 151 H Total Protein 6.3 Albumin 3.3 L Impressions: Cervical Spine CT 10/17/16 18:04 IMPRESSION: CHRONIC DEGENERATIVE CHANGES. NO ACUTE FINDINGS. Facial Bones CT 10/17/16 18:04 IMPRESSION: Small nasal bone fractures. Head CT 10/19/16 00:00 IMPRESSION: NORMAL BRAIN CT WITHOUT CONTRAST. Assessment & Plan - Diagnosis (1) Alcohol withdrawal seizure with complication Qualifiers: Complication of substance-induced condition: with perceptual disturbance Qualified Code(s): F10.232 - Alcohol dependence with withdrawal with perceptual disturbance Is this a current diagnosis for this admission?: YesPlan: Appears is to be improved, but is not yet back to baseline. Patient on scheduled Ativan as well as as needed Ativan. Patient on thiamine, folic acid, and multivitamin. Monitor electrolytes, seizure precautions and sitter. (2) Leukopenia Qualifiers: Leukopenia type: unspecified Qualified Code(s): D72.819 - Decreased white blood cell count, unspecified Is this a current diagnosis for this admission?: YesPlan: / to alcohol abuse Improving (3) Ataxia Is this a current diagnosis for this admission?: YesPlan: Concern for Wernicke's. Repeat CT reveals no delayed bleeding. Obtain MRI. On high dose IV thiamine for the next three days. Consult PT (4) Nasal fracture Qualifiers: Encounter type: initial encounter Fracture type: closed Qualified Code(s): S02.2XXA - Fracture of nasal bones, initial encounter for closed fracture Is this a current diagnosis for this admission?: YesPlan: Supportive care (5) Thrombocytopenia Is this a current diagnosis for this admission?: YesPlan: Patient has thrombocytopenia likely secondary to his severe alcohol abuse. Continue seizure precautions and supportive care. Have considered other eitologies although less likely including ITP, TTP, drug induced. HIV is negative. (6) Alcoholic cirrhosis of liver without ascites Is this a current diagnosis for this admission?: YesPlan: MELD score of 14. This give patient a 90 day mortality rate of 6%. Encourage patient to remain abstinent. - Time Time Spent with patient: 25-34 minutes Medications reviewed and adjusted accordingly: Yes Anticipated discharge: Acute Rehab
[2016-10-21] MEDS: LORAZEPAM 1 MG TABLET PO SCH (17:45)
[2016-10-22] MEDS: LORAZEPAM 1 MG TABLET PO SCH ×4 (00:29→23:36)
[2016-10-22] MEDS: MAGNESIUM OXIDE 400 MG TABLET PO SCH ×3 (07:59→17:27)
[2016-10-22] MEDS: PHOSPHORUS #1 250 MG TABLET PO SCH ×3 (07:59→17:28)
--- NOTE | 2016-10-22 08:57 | PDOC PROGRESS REPORT ---
Subjective Progress Note for:: 10/22/16 Subjective:: Patient feels much better this morning. Patient is more awake and oriented. There is minimal shaking. Gait is still unsteady but improved. CT scans were negative for any intracranial abnormality but did reveal some nasal bone fracture. Bruises on the face relatively stable as reported. Physical Exam Vital Signs: Temp Pulse Resp BP Pulse Ox 97.8 F 81 18 128/88 H 96 10/22/16 07:40 10/22/16 07:40 10/22/16 07:40 10/22/16 07:40 10/22/16 07:40 Intake & Output 10/21/16 10/22/16 10/23/16 06:59 06:59 06:59 Intake Total 1600 1740 Output Total 1300 2350 Balance 300 -610 Weight 73.2 kg 73.2 kg General appearance: PRESENT: no acute distress, cooperative Head exam: PRESENT: normocephalic Eye exam: PRESENT: EOMI Mouth exam: PRESENT: moist, neck supple Neck exam: ABSENT: JVD Respiratory exam: PRESENT: clear to auscultation zoran. ABSENT: rhonchi, wheezes Cardiovascular exam: PRESENT: RRR, +S1, +S2. ABSENT: gallop GI/Abdominal exam: PRESENT: soft. ABSENT: distended, tenderness Extremities exam: ABSENT: pedal edema Neurological exam: PRESENT: alert, awake, oriented to situation Psychiatric exam: ABSENT: agitated Focused psych exam: ABSENT: restlessness Skin exam: PRESENT: dry, warm. ABSENT: cyanosis Results Laboratory Results: 10/20/16 05:09 10/21/16 04:59 10/21/16 04:59 Magnesium 1.7 Impressions: Cervical Spine CT 10/17/16 18:04 IMPRESSION: CHRONIC DEGENERATIVE CHANGES. NO ACUTE FINDINGS. Facial Bones CT 10/17/16 18:04 IMPRESSION: Small nasal bone fractures. Head CT 10/19/16 00:00 IMPRESSION: NORMAL BRAIN CT WITHOUT CONTRAST. Assessment & Plan - Diagnosis (1) Alcohol withdrawal seizure Qualifiers: Complication of substance-induced condition: with unspecified complication Qualified Code(s): F10.239 - Alcohol dependence with withdrawal, unspecified; R56.9 - Unspecified convulsions Is this a current diagnosis for this admission?: Yes (2) Alcoholic cirrhosis of liver without ascites Is this a current diagnosis for this admission?: Yes (3) Nasal fracture Qualifiers: Encounter type: initial encounter Fracture type: closed Qualified Code(s): S02.2XXA - Fracture of nasal bones, initial encounter for closed fracture Is this a current diagnosis for this admission?: Yes (4) Thrombocytopenia Is this a current diagnosis for this admission?: Yes (5) Hypokalemia Is this a current diagnosis for this admission?: Yes (6) Coagulopathy Is this a current diagnosis for this admission?: Yes (7) Ataxia Is this a current diagnosis for this admission?: Yes - Time Time Spent with patient: 25-34 minutes - Plan Summary Plan Summary: Patient is refusing to have the MRI. We are going to hold the study as he is improving. I am going to decrease the Ativan scheduled and continue as needed Ativan. We will recheck electrolytes and replace accordingly. We will monitor platelet count. Continue supportive care.
[2016-10-22] MEDS: DOCUSATE SODIUM 100 MG CAPSULE PO SCH ×2 (10:09→17:27)
[2016-10-22] MEDS: POTASSIUM CHLORIDE 10 MEQ TABLET.SA PO SCH (10:09)
[2016-10-22] MEDS: FOLIC ACID 1 MG TABLET PO SCH (10:10)
[2016-10-22] MEDS: THIAMINE HCL 500 MG in NORMAL SALINE 50 ML IV SCH (10:12)
[2016-10-22] MEDS: TEMAZEPAM 15 MG CAPSULE PO SCH (23:37)
[2016-10-23] MEDS: LORAZEPAM 1 MG TABLET PO SCH (05:33)
[2016-10-23 07:23] LABS: HEMATOCRIT 40.9 % (37.9-51.0); HEMOGLOBIN 13.6 g/dL (13.5-17.0); HGB HCT DIFFERENCE -0.1; MEAN CORPUSCULAR HEMOGLOBIN 34.2 pg (27.0-33.4); MEAN CORPUSCULAR HGB CONC 33.3 g/dL (32.0-36.0); MEAN CORPUSCULAR VOLUME 103 fl (80-97); RED BLOOD COUNT 3.99 10^6/uL (4.35-5.55); WHITE BLOOD COUNT 3.1 10^3/uL (4.0-10.5)
[2016-10-23] MEDS: MAGNESIUM OXIDE 400 MG TABLET PO SCH ×3 (08:12→18:10)
[2016-10-23] MEDS: PHOSPHORUS #1 250 MG TABLET PO SCH ×3 (08:12→18:11)
[2016-10-23] MEDS ORDERED: NORMAL SALINE 1000 ML 1,000 ML IV PRN (11:33)
--- NOTE | 2016-10-23 11:37 | PDOC PROGRESS REPORT ---
Subjective Progress Note for:: 10/23/16 Subjective:: Patient feels much better this morning. Patient is more awake and oriented. No tremors. Gait is still unsteady but improved. CT scans were negative for any intracranial abnormality but did reveal some nasal bone fracture. Bruises on the face relatively stable as reported. Refused MRI. Physical Exam Vital Signs: Temp Pulse Resp BP Pulse Ox 98.0 F 83 19 130/86 H 98 10/23/16 08:26 10/23/16 08:26 10/23/16 08:26 10/23/16 08:26 10/23/16 08:26 Intake & Output 10/22/16 10/23/16 10/24/16 06:59 06:59 06:59 Intake Total 1740 1193 Output Total 2350 2600 Balance -610 -1407 Weight 73.2 kg 73.2 kg General appearance: PRESENT: no acute distress, cooperative Head exam: PRESENT: normocephalic Eye exam: PRESENT: EOMI Mouth exam: PRESENT: moist, neck supple Neck exam: ABSENT: JVD Respiratory exam: PRESENT: clear to auscultation zoran. ABSENT: rhonchi, wheezes Cardiovascular exam: PRESENT: RRR. ABSENT: gallop GI/Abdominal exam: PRESENT: soft. ABSENT: distended, tenderness Extremities exam: ABSENT: pedal edema Neurological exam: PRESENT: alert, awake, oriented to person, oriented to place , oriented to time, oriented to situation Skin exam: PRESENT: dry, warm. ABSENT: cyanosis Results Laboratory Results: 10/23/16 06:43 10/22/16 09:39 10/23/16 06:43 WBC 3.1 L RBC 3.99 L Hgb 13.6 Hct 40.9 MCV 103 H MCH 34.2 H MCHC 33.3 RDW 13.0 Plt Count 92 L Impressions: Cervical Spine CT 10/17/16 18:04 IMPRESSION: CHRONIC DEGENERATIVE CHANGES. NO ACUTE FINDINGS. Facial Bones CT 10/17/16 18:04 IMPRESSION: Small nasal bone fractures. Head CT 10/19/16 00:00 IMPRESSION: NORMAL BRAIN CT WITHOUT CONTRAST. Assessment & Plan - Diagnosis (1) Alcohol withdrawal seizure Qualifiers: Complication of substance-induced condition: with unspecified complication Qualified Code(s): F10.239 - Alcohol dependence with withdrawal, unspecified; R56.9 - Unspecified convulsions Is this a current diagnosis for this admission?: Yes (2) Alcoholic cirrhosis of liver without ascites Is this a current diagnosis for this admission?: Yes (3) Nasal fracture Qualifiers: Encounter type: initial encounter Fracture type: closed Qualified Code(s): S02.2XXA - Fracture of nasal bones, initial encounter for closed fracture Is this a current diagnosis for this admission?: Yes (4) Thrombocytopenia Is this a current diagnosis for this admission?: Yes (5) Hypokalemia Is this a current diagnosis for this admission?: Yes (6) Coagulopathy Is this a current diagnosis for this admission?: Yes (7) Ataxia Is this a current diagnosis for this admission?: Yes - Time Time Spent with patient: 25-34 minutes - Plan Summary Plan Summary: D/C ativan scheduled and PRN. D/C restoril as well. Give IVF. Hopefully unsteadiness improves. Cont. PT.
[2016-10-23] MEDS: POTASSIUM CHLORIDE 10 MEQ TABLET.SA PO SCH (11:53)
[2016-10-23] MEDS: DOCUSATE SODIUM 100 MG CAPSULE PO SCH ×2 (11:54→18:10)
[2016-10-23] MEDS: FOLIC ACID 1 MG TABLET PO SCH (11:54)
[2016-10-23] MEDS: THIAMINE HCL 500 MG in NORMAL SALINE 50 ML IV SCH (11:54)
[2016-10-24] MEDS: THIAMINE HCL 500 MG in NORMAL SALINE 50 ML IV SCH (09:43)
[2016-10-24] MEDS: POTASSIUM CHLORIDE 10 MEQ TABLET.SA PO SCH (09:43)
[2016-10-24] MEDS: PHOSPHORUS #1 250 MG TABLET PO SCH ×3 (09:44→17:06)
[2016-10-24] MEDS: FOLIC ACID 1 MG TABLET PO SCH (09:44)
[2016-10-24] MEDS: MAGNESIUM OXIDE 400 MG TABLET PO SCH ×3 (09:44→17:07)
[2016-10-24] MEDS: DOCUSATE SODIUM 100 MG CAPSULE PO SCH ×2 (09:44→17:07)
--- NOTE | 2016-10-24 13:01 | PDOC PROGRESS REPORT ---
Subjective Progress Note for:: 10/24/16 Subjective:: Able to ambulate better off the benzodiazepine. Unsteadiness improved. No temperature spikes, shortness of breath, PND orthopnea. Physical Exam Vital Signs: Temp Pulse Resp BP Pulse Ox 98.9 F 76 19 137/84 H 98 10/24/16 12:04 10/24/16 12:04 10/24/16 12:04 10/24/16 12:04 10/24/16 12:04 Intake & Output 10/23/16 10/24/16 10/25/16 06:59 06:59 06:59 Intake Total 1193 1283 Output Total 2600 2400 Balance -1407 -1117 Weight 73.2 kg 73.1 kg General appearance: PRESENT: no acute distress, cooperative Head exam: PRESENT: normocephalic Eye exam: PRESENT: EOMI Mouth exam: PRESENT: moist, neck supple Respiratory exam: PRESENT: clear to auscultation zoran. ABSENT: rhonchi, wheezes Cardiovascular exam: PRESENT: RRR. ABSENT: gallop GI/Abdominal exam: PRESENT: normal bowel sounds, soft. ABSENT: distended, tenderness Extremities exam: ABSENT: pedal edema Neurological exam: PRESENT: alert, awake, oriented to situation Skin exam: PRESENT: dry, warm. ABSENT: cyanosis Results Laboratory Results: 10/23/16 06:43 10/22/16 09:39 Impressions: Cervical Spine CT 10/17/16 18:04 IMPRESSION: CHRONIC DEGENERATIVE CHANGES. NO ACUTE FINDINGS. Facial Bones CT 10/17/16 18:04 IMPRESSION: Small nasal bone fractures. Head CT 10/19/16 00:00 IMPRESSION: NORMAL BRAIN CT WITHOUT CONTRAST. Assessment & Plan - Diagnosis (1) Alcohol withdrawal seizure Qualifiers: Complication of substance-induced condition: with unspecified complication Qualified Code(s): F10.239 - Alcohol dependence with withdrawal, unspecified; R56.9 - Unspecified convulsions Is this a current diagnosis for this admission?: Yes (2) Alcoholic cirrhosis of liver without ascites Is this a current diagnosis for this admission?: Yes (3) Nasal fracture Qualifiers: Encounter type: initial encounter Fracture type: closed Qualified Code(s): S02.2XXA - Fracture of nasal bones, initial encounter for closed fracture Is this a current diagnosis for this admission?: Yes (4) Thrombocytopenia Is this a current diagnosis for this admission?: Yes (5) Hypokalemia Is this a current diagnosis for this admission?: Yes (6) Coagulopathy Is this a current diagnosis for this admission?: Yes (7) Ataxia Is this a current diagnosis for this admission?: Yes - Time Time Spent with patient: 15-24 minutes - Plan Summary Plan Summary: Continue to increase ambulation, we will set up for home health for PT on discharge. possible discharge in the morning.
[2016-10-24] MEDS ORDERED: NORMAL SALINE 1000 ML 1,000 ML IV PRN (13:02)
[2016-10-25] MEDS: MAGNESIUM OXIDE 400 MG TABLET PO SCH ×2 (08:11→11:46)
[2016-10-25] MEDS: PHOSPHORUS #1 250 MG TABLET PO SCH ×2 (08:11→11:46)
[2016-10-25] MEDS: POTASSIUM CHLORIDE 10 MEQ TABLET.SA PO SCH (09:16)
[2016-10-25] MEDS: FOLIC ACID 1 MG TABLET PO SCH (09:16)
[2016-10-25] MEDS: THIAMINE HCL 500 MG in NORMAL SALINE 50 ML IV SCH (09:16)
[2016-10-25] MEDS: DOCUSATE SODIUM 100 MG CAPSULE PO SCH (09:16)
--- NOTE | 2016-10-25 14:21 | PDOC DISCHARGE SUMMARY ---
General - Admit/Disc Date/PCP Admission Date/Primary Care Provider: 10/17/16 22:24 FRANK RIVERA MD Discharge Date: 10/25/16 - Discharge Diagnosis (1) Alcohol withdrawal seizure Is this a current diagnosis for this admission?: Yes (2) Alcoholic cirrhosis of liver without ascites Is this a current diagnosis for this admission?: Yes (3) Nasal fracture Is this a current diagnosis for this admission?: Yes (4) Thrombocytopenia Is this a current diagnosis for this admission?: Yes (5) Hypokalemia Is this a current diagnosis for this admission?: Yes (6) Coagulopathy Is this a current diagnosis for this admission?: Yes (7) Ataxia Is this a current diagnosis for this admission?: Yes - Additional Information Resuscitation Status: Full Code Discharge Diet: Regular Discharge Activity: Activity As Tolerated, Balance Activity w/Rest Home Medications: Disulfiram [Antabuse 250 mg Tablet] 250 mg PO DAILY 10/18/16 Folic Acid [Folvite 1 mg Tablet] 1 mg PO DAILY #30 tablet 10/25/16 Multivitamin [Daily Multiple Vitamin] 1 each PO DAILY #30 tablet 10/25/16 Thiamine HCl [Thiamine 100 mg Tablet] 100 mg PO DAILY #30 tablet 10/25/16 Additional Information: Stop alcohol. Alcohol rehabilitation program or facility of choice. History of Present Illness Patient complains of: Seizure History of Present Illness: ODALYS GUTIERREZ is a 55 year old male with a past medical history of alcohol dependence who had abruptly discontinued alcohol 48 hours ago after recurrent falls. Patient presents to the emergency room after a seizure resulting in a fall striking his face to the floor resulting in nasal bone fracture by CT. In the emergency room is also found to be postictal, severely tremulous and a platelet count of 28 he is referred to the hospitalist for admission. Patient states he has had alcohol withdrawal in the past. For details please refer to history and physical examination performed by the admitting physician. Hospital Course Hospital Course: The patient was admitted to telemetry. The patient was started on IV hydration with saline and supplements with thiamine as well as folic acid and multivitamin. The patient was placed on scheduled Ativan and as needed intravenously. Patient had episode of withdrawal from alcohol that eventually improve with time. No more seizure episodes were noted. The patient had a CT of the head showing some small fracture in the nasal bone. Cervical spine CT was likewise negative for fracture. The patient's withdrawal symptoms improved and he was begun on physical therapy. Apparently the patient complains of unsteady gait and therefore a follow-up CT scan of the brain was obtained which did not reveal any intracranial acute abnormality. MRI was ordered apparently the patient refused. Physical therapy was instituted. His withdrawal symptoms resolved. He was recommended to have subacute rehab but likewise the patient refused as he stated he does not have means of payment for the rehabilitation facility. At this point the patient's probably related to Ativan scheduled and therefore this was discontinued. Patient was maintained on IV hydration and eventually after discontinuation of benzodiazepine the patient's gait and mobility improved significantly. Patient was able to ambulate better with a walker. The rest of the hospital stays unremarkable. Patient wanting to go home instead of rehabilitation facility. Family was agreeable with the plan as well. paraplanner was consulted. Front-wheeled walker was given, patient referred to home health for physical therapy. Patient and family given information regarding alcohol rehabilitation program as well. The rest of the hospital stays unremarkable. Physical Exam Vital Signs: Temp Pulse Resp BP Pulse Ox 98.9 F 79 16 118/76 96 10/25/16 11:11 10/25/16 11:11 10/25/16 11:11 10/25/16 11:11 10/25/16 11:11 Intake & Output 10/24/16 10/25/16 10/26/16 06:59 06:59 06:59 Intake Total 1283 3485 Output Total 2400 500 Balance -1117 2985 Weight 73.1 kg 73 kg General appearance: PRESENT: no acute distress, cooperative, other - Bruises on the face stable Head exam: PRESENT: normocephalic Eye exam: PRESENT: EOMI, PERRLA Mouth exam: PRESENT: moist, neck supple Neck exam: ABSENT: JVD Respiratory exam: PRESENT: clear to auscultation zoran. ABSENT: rhonchi, wheezes Cardiovascular exam: PRESENT: RRR. ABSENT: gallop GI/Abdominal exam: PRESENT: normal bowel sounds, soft. ABSENT: distended, tenderness Extremities exam: ABSENT: pedal edema Neurological exam: PRESENT: alert, awake, oriented to person, oriented to place , oriented to time, oriented to situation Psychiatric exam: ABSENT: agitated Focused psych exam: ABSENT: restlessness Skin exam: PRESENT: dry, warm. ABSENT: cyanosis Results Laboratory Results: 10/23/16 06:43 10/22/16 09:39 Impressions: Cervical Spine CT 10/17/16 18:04 IMPRESSION: CHRONIC DEGENERATIVE CHANGES. NO ACUTE FINDINGS. Facial Bones CT 10/17/16 18:04 IMPRESSION: Small nasal bone fractures. Head CT 10/19/16 00:00 IMPRESSION: NORMAL BRAIN CT WITHOUT CONTRAST. Qualifiers PATEINT BEING DISCHARGED WITH ANY OF THE FOLLOWING DIAGNOSIS?: No Plan Discharge Plan: Follow-up with primary care physician in 1 week. Time Spent: Less than 30 Minutes
[2016-10-25 14:37] VITALS: BP 124/83
== END 2016-10-25 16:03 | disposition home health service (06) | DRG 897 ==
LOC: ER 17:16 → EH 22:24 → EEVIPCON 22:24 → EH 22:35 → UNDOADMIN 22:35 → 5 10-18 01:24
PROVIDERS: ADMIT Internal Medicine; ATTEND Internal Medicine
DX: F10.232 Alcohol dependence with withdrawal with perceptual disturbance (principal); G40.89 Other seizures; D68.9 Coagulation defect, unspecified; S02.2XXA Fracture of nasal bones, initial encounter for closed fracture; E87.6 Hypokalemia; K70.30 Alcoholic cirrhosis of liver without ascites; Y90.0 Blood alcohol level of less than 20 mg/100 ml; D69.59 Other secondary thrombocytopenia; R27.0 Ataxia, unspecified; D72.819 Decreased white blood cell count, unspecified; W19.XXXA Unspecified fall, initial encounter; Y93.9 Activity, unspecified
CPT/HCPCS: 36415; 70450; 70486; 72125; 80053; 80307; 81001; 82140; 83735; 84100; 84132; 85025; 85027; 85610; 86701; 93005; 93010; 96374; 96376; 99291; J2060; J3411; J3480; J3490; J7030; L0120

== ENCOUNTER → 2016-12-17 | Outpatient (CLI) | payer OTHER ==
[2016-12-17 10:44] LABS: ABSOLUTE EOSINOPHILS # (AUTO) 0.1 10^3/uL (0.0-0.6); ABSOLUTE LYMPHOCYTES (AUTO) 1.3 10^3/uL (0.5-4.7); ABSOLUTE MONOCYTES (AUTO) 0.4 10^3/uL (0.1-1.4); ABSOLUTE NEUT (AUTO) 1.6 10^3/uL (1.7-8.2); BASOPHILS % (AUTO) 1.5 % (0-2); EOSINOPHILS % (AUTO) 3.1 % (0-6); HEMATOCRIT 45.2 % (37.9-51.0); HEMOGLOBIN 15.3 g/dL (13.5-17.0); HGB HCT DIFFERENCE 0.7; MEAN CORPUSCULAR HEMOGLOBIN 31.6 pg (27.0-33.4); MEAN CORPUSCULAR HGB CONC 33.8 g/dL (32.0-36.0); MEAN CORPUSCULAR VOLUME 94 fl (80-97); MONOCYTES % (AUTO) 10.4 % (3-13); RED BLOOD COUNT 4.83 10^6/uL (4.35-5.55); RED CELL DISTRIBUTION WIDTH 12.4 % (11.5-14.0); WHITE BLOOD COUNT 3.4 10^3/uL (4.0-10.5)
[2016-12-17 11:27] LABS: ALANINE AMINOTRANSFERASE 34 U/L (21-72); ALKALINE PHOSPHATASE 64 U/L (38-126); ANION GAP 9 (5-19); ASPARTATE AMINO TRANSFERASE 40 U/L (17-59); BILIRUBIN,DIRECT 0.4 mg/dL (0.0-0.4); BILIRUBIN,TOTAL 1.2 mg/dL (0.2-1.3); BLOOD UREA NITROGEN 10 mg/dL (7-20); CALCIUM 9.8 mg/dL (8.4-10.2); CARBON DIOXIDE 26 mmol/L (22-30); CHLORIDE 106 mmol/L (98-107); CHOLESTEROL 232.77 mg/dL (0-200); CREATININE RESULT 0.79 mg/dL (0.52-1.25); Direct HDL 57 mg/dL (>40); GLUCOSE 89 mg/dL (75-110); POTASSIUM 4.3 mmol/L (3.6-5.0); SODIUM 141.1 mmol/L (137-145); TOTAL PROTEIN 6.9 g/dL (6.3-8.2); TRIGLYCERIDES 96 mg/dL (<150)
[2016-12-17 11:38] LABS: DIRECT LDL 145 mg/dL (<100)
== END ==
LOC: OD 09:51
DX: D69.6 Thrombocytopenia, unspecified (principal); R94.5 Abnormal results of liver function studies
CPT/HCPCS: 36415; 80053; 80061; 83036; 84443; 85025

== ENCOUNTER → 2017-02-09 | Outpatient (CLI) | payer OTHER ==
[2017-02-09 13:54] LABS: ABSOLUTE EOSINOPHILS # (AUTO) 0.1 10^3/uL (0.0-0.6); ABSOLUTE LYMPHOCYTES (AUTO) 1.4 10^3/uL (0.5-4.7); ABSOLUTE MONOCYTES (AUTO) 0.4 10^3/uL (0.1-1.4); ABSOLUTE NEUT (AUTO) 2.3 10^3/uL (1.7-8.2); BASOPHILS % (AUTO) 0.9 % (0-2); EOSINOPHILS % (AUTO) 2.1 % (0-6); HEMATOCRIT 42.2 % (37.9-51.0); HEMOGLOBIN 14.4 g/dL (13.5-17.0); LYMPHOCYTES % (AUTO) 33.6 % (13-45); MEAN CORPUSCULAR HEMOGLOBIN 29.9 pg (27.0-33.4); MEAN CORPUSCULAR HGB CONC 34.1 g/dL (32.0-36.0); MEAN CORPUSCULAR VOLUME 88 fl (80-97); MONOCYTES % (AUTO) 8.6 % (3-13); RED BLOOD COUNT 4.81 10^6/uL (4.35-5.55); RED CELL DISTRIBUTION WIDTH 12.6 % (11.5-14.0); SEGMENTED NEUTROPHILS % (AUTO) 54.8 % (42-78); WHITE BLOOD COUNT 4.2 10^3/uL (4.0-10.5)
== END ==
LOC: OD 12:14
DX: D69.6 Thrombocytopenia, unspecified (principal)
CPT/HCPCS: 36415; 85025

== ENCOUNTER 2017-08-01 19:05 | Inpatient (IN) | payer SELFPAY ==
[2017-08-01] MEDS ORDERED: DIAZEPAM INJ 10 MG/2 ML DISP.SYRIN IV ONE ×2 (19:21→20:49)
[2017-08-01] MEDS ORDERED: NORMAL SALINE 1000 ML 1,000 ML IV ONE (19:21)
[2017-08-01] MEDS ORDERED: ONDANSETRON HCL INJ/PF 4 MG/2 ML SDV IV ONE (19:21)
--- NOTE | 2017-08-01 19:30 | ER Document Report ---
ED General - General Stated Complaint: SEIZURE Time Seen by Provider: 08/01/17 19:11 Cannot obtain history due to: Altered mental status Notes: Patient is a 56 year old male with a past medical history of alcohol withdrawal seizures no other chronic medical problems who presents after having a witnessed seizure. Patient reports he is currently withdrawing from alcohol, last drink of alcohol was greater than 48 hours ago. He states that he was standing in the kitchen when he apparently had a seizure. He struck his head on the kitchen table. He is unable to describe any additional details thereafter as he has no recollection. He states he has had one withdrawal seizure in the past under similar circumstances. He is not currently taking any medical therapy to himself off of alcohol. He does currently reside with his mother. His main complaint is that of a dull, constant, throbbing pain to the right side of his tongue she states that during his seizure. He has multiple abrasions over his body which he states are all minimally painful. His last tetanus shot was 11 years ago. He denies any focal weakness, numbness , vomiting or confusion. He does not use any form of anticoagulation. TRAVEL OUTSIDE OF THE [place] IN LAST 30 DAYS: No - Related Data Allergies/Adverse Reactions: No Known Allergies Allergy (Verified 05/07/12 13:43) Past Medical History - General Information source: Patient - Social History Smoking Status: Never Smoker Frequency of alcohol use: Heavy Drug Abuse: None Lives with: Family Family History: Reviewed & Not Pertinent Renal/ Medical History: Denies: Hx Peritoneal Dialysis - Immunizations Hx Diphtheria, Pertussis, Tetanus Vaccination: No Review of Systems - Review of Systems Notes: Constitutional: Negative for fever. Eyes: Negative for visual changes. ENT: Positive for facial injury Cardiovascular: Negative for chest injury. Respiratory: Negative for shortness of breath. Gastrointestinal: Negative for abdominal injury. Genitourinary: Negative for genital injury Musculoskeletal: Negative for back injury. Skin: Positive for laceration/abrasions. Neurological: Positive for head injury. Physical Exam - Vital signs Vitals: Resp 19 08/01/17 19:14 Interpretation: Hypertensive, Tachycardic Notes: PHYSICAL EXAMINATION: GENERAL: Appears moderately uncomfortable but in no acute distress HEAD: Multiple traumatic hematomas of the forehead as well as scattered abrasions over the frontal scalp bilaterally, normocephalic. EYES: Pupils equal round and reactive to light, extraocular movements intact, sclera with mild icterus, conjunctiva are normal. ENT: nares patent, no oral pharyngeal trauma. No hemotympanum, no Sarabia's sign , no raccoon eyes. NECK: No midline cervical spine tenderness. Patient able to move their head to 45 bilaterally without any discomfort. LUNGS: Breath sounds clear to auscultation bilaterally and equal. No wheezes rales or rhonchi. HEART: Regular rate and rhythm without murmurs. CHEST WALL: No ecchymosis over the chest wall. ABDOMEN: Soft, nontender, normoactive bowel sounds. No guarding, no rebound. No abdominal bruising EXTREMITIES: Normal range of motion, no pitting or edema. No long bone deformities. BACK: No midline spinal tenderness, step-offs, or deformities. NEUROLOGICAL: Face symmetric. Tongue protrudes midline. Extraocular motions intact. Pupils are 2 mm and equally reactive. Normal speech, normal gait. 5 out of 5 strength in both the distal and proximal upper and lower extremities bilaterally. Sensation is grossly intact throughout. Finger to nose testing normal. Pronator drift normal. PSYCH: Anxious, tremulous SKIN: Warm, Dry, normal turgor, scattered abrasions of the bilateral forearms and scalp Course - Re-evaluation Re-evalutation: 08/01/17 19:22 Patient presents after having a witnessed seizure. He has a history of one prior alcohol withdrawal seizure and states that he last had a drink of alcohol over 48 hours ago as he is trying to quit. His presentation is most consistent with an acute alcohol withdrawal seizure. He has sustained multiple abrasions and forehead trauma during the fall today. Given that he had a seizure in conjunction with this episode a CT of the head will be obtained to exclude an intracranial bleed. Patient evaluated by NEXUS criteria and found to be negative. Patient is also negative by ecuadorean C-spine criteria. No clinical evidence to suggest increased risk of cervical spine fracture. No indication for further imaging of the cervical spine this point. Patient is having obvious withdrawal at time of evaluation with associated hypertension and tachycardia. He is not currently taking anything to wean off alcohol. Will obtain basic labs, provide IV hydration, IV Valium and reassess the patient. 08/01/17 19:51 Patient did bite his tongue during today's seizure is having increased swelling to the right side of tongue. He is still able to speak protect his airway but has had some difficulty with mild hypoxia if he falls asleep going up to 88% on room air. We are applying ice to the affected area, give a dose of dexamethasone to help decrease swelling, and keep the patient on supplemental oxygen and monitor. 08/01/17 20:48 Patient's laboratories do show findings consistent with alcoholic hepatitis. Otherwise unremarkable. CT the head without any evidence of intracranial bleed. Patient does remain persistently tachycardic, hypertensive, continues to have some withdrawal symptoms. Will give additional dose of Valium although I am trying to avoid over sedating the patient due to the engorgement of his tongue and the risks of airway occlusion if he became oversedated. I will discuss with the hospitalist for admission. - Vital Signs Vital signs: Temp Pulse Resp BP Pulse Ox 97.7 F 87 18 137/72 H 98 08/01/17 23:28 08/02/17 02:00 08/01/17 23:28 08/01/17 23:28 08/01/17 23:28 - Laboratory Result Diagrams: 08/01/17 19:36 08/01/17 19:36 Laboratory results interpreted by me: 08/01/17 08/01/17 08/01/17 19:36 19:36 19:36 WBC 3.9 L RBC 4.09 L Hgb 13.3 L RDW 16.1 H Plt Count 38 L PT 15.5 H Sodium 136.8 L Chloride 97 L Glucose 207 H Total Bilirubin 4.9 H Direct Bilirubin 2.3 H AST 408 H ALT 126 H Alkaline Phosphatase 158 H - Diagnostic Test Radiology reviewed: Image reviewed, Reports reviewed Radiology results interpreted by me: 08/01/17 20:49 CT head: No acute intracranial bleed Discharge - Discharge Clinical Impression: Seizure Alcohol withdrawal Qualifiers: Complication of substance-induced condition: with unspecified complication Qualified Code(s): F10.239 - Alcohol dependence with withdrawal, unspecified Nasal fracture Qualifiers: Encounter type: initial encounter Fracture type: closed Qualified Code(s): S02.2XXA - Fracture of nasal bones, initial encounter for closed fracture Alcohol withdrawal seizure Qualifiers: Complication of substance-induced condition: uncomplicated Qualified Code(s): F10.230 - Alcohol dependence with withdrawal, uncomplicated Alcoholic hepatitis Qualifiers: Ascites presence: without ascites Qualified Code(s): K70.10 - Alcoholic hepatitis without ascites Condition: Fair Disposition: ADMITTED INPATIENT Admitting Provider: Hospitalist Unit Admitted: [facility]
[2017-08-01] MEDS ORDERED: DEXAMETHASONE SOD PHOS INJ 10 MG/1 ML VIAL IV ONE (19:52)
[2017-08-01 19:54] LABS: HEMATOCRIT 38.6 % (37.9-51.0); HEMOGLOBIN 13.3 g/dL (13.5-17.0); MEAN CORPUSCULAR HEMOGLOBIN 32.5 pg (27.0-33.4); MEAN CORPUSCULAR HGB CONC 34.4 g/dL (32.0-36.0); MEAN CORPUSCULAR VOLUME 94 fl (80-97); RED BLOOD COUNT 4.09 10^6/uL (4.35-5.55); RED CELL DISTRIBUTION WIDTH 16.1 % (11.5-14.0); WHITE BLOOD COUNT 3.9 10^3/uL (4.0-10.5)
[2017-08-01 19:57] LABS: INTERNATIONAL RATION (INR) 1.17; PROTHROMBIN TIME 15.5 SEC (11.4-15.4)
[2017-08-01 19:58] LABS: PLATELET COUNT 38 10^3/uL (150-450)
[2017-08-01 20:03] LABS: ALANINE AMINOTRANSFERASE 126 U/L (21-72); ALBUMIN 4.4 g/dL (3.5-5.0); ALKALINE PHOSPHATASE 158 U/L (38-126); ANION GAP 17 (5-19); ASPARTATE AMINO TRANSFERASE 408 U/L (17-59); BILIRUBIN,DIRECT 2.3 mg/dL (0.0-0.4); BILIRUBIN,TOTAL 4.9 mg/dL (0.2-1.3); BLOOD UREA NITROGEN 9 mg/dL (7-20); CALCIUM 9.6 mg/dL (8.4-10.2); CARBON DIOXIDE 23 mmol/L (22-30); CHLORIDE 97 mmol/L (98-107); GLUCOSE 207 mg/dL (75-110); POTASSIUM 3.6 mmol/L (3.6-5.0); SODIUM 136.8 mmol/L (137-145); TOTAL PROTEIN 7.1 g/dL (6.3-8.2)
--- NOTE | 2017-08-01 20:21 | RADIOLOGY REPORT (SQ) ---
EXAM DESCRIPTION: CT HEAD WITHOUT COMPLETED DATE/TIME: 08/01/2017 8:01 pm REASON FOR STUDY: head trauma, seizure COMPARISON: None. TECHNIQUE: Axial images acquired through the brain without intravenous contrast. Images reviewed wi th bone, brain and subdural windows. Additional sagittal and coronal reconstructions were generated. Images stored on PACS. All CT scanners at this facility use dose modulation, iterative reconstruction, and/or weight based d osing when appropriate to reduce radiation dose to as low as reasonably achievable (ALARA). [facility]: Dose Right [facility]: CareDose [facility]: Dose Right [facility]: Teradose 4D [facility]: [employer] Technologies RADIATION DOSE: CT Rad equipment meets quality standard of care and radiation dose reduction techniq ues were employed. CTDIvol: 48.6 mGy. DLP: 954 mGy-cm. mGy. LIMITATIONS: None. FINDINGS: VENTRICLES: Normal size and contour. CEREBRUM: No masses. No hemorrhage. No midline shift. No evidence for acute infarction. Normal gra y/white matter differentiation. No areas of low density in the white matter. CEREBELLUM: No masses. No hemorrhage. No alteration of density. No evidence for acute infarction. EXTRAAXIAL SPACES: No fluid collections. No masses. ORBITS AND GLOBE: No intra- or extraconal masses. Normal contour of globe without masses. CALVARIUM: No fracture. PARANASAL SINUSES: Small amount fluid in the sphenoid sinus. SOFT TISSUES: Right temporal soft tissue swelling. OTHER: Minimally displaced fracture of the nasal bone. IMPRESSION: 1. UNREMARKABLE NONCONTRAST CT OF THE BRAIN. 2. RIGHT TEMPORAL SOFT TISSUE SWELLING. 3. MINIMALLY DISPLACED FRACTURE OF THE NASAL BONE. EVIDENCE OF ACUTE STROKE: NO. COMMENT: Quality ID # [id number]: Final reports with documentation of one or more dose reduction techniques (e.g., Automated exposure control, adjustment of the mA and/or kV according to patient size, use of iterative reconstruction technique) TECHNICAL DOCUMENTATION: JOB ID: [id number] [employer]- All Rights Reserved Reading location - IP/workstation name: [email or web address]
[2017-08-01 20:29] LABS: ABSOLUTE LYMPHOCYTES# (MANUAL) 0.7 10^3/uL (0.5-4.7); ABSOLUTE MONOCYTES # (MANUAL) 0.2 10^3/uL (0.1-1.4); ABSOLUTE NEUTROPHILS# (MANUAL) 2.9 10^3/uL (1.7-8.2); BASOPHILS % (MANUAL) 1 % (0-2); EOSINOPHILS % (MANUAL) 0 % (0-6); LYMPHOCYTES % (MANUAL) 18 % (13-45); MONOCYTES % (MANUAL) 6 % (3-13); SEGMENTED NEUTROPHILS % (MAN) 75 % (42-78); TOTAL CELLS COUNTED 100
[2017-08-01 20:31] LABS: ANISOCYTOSIS SLIGHT; POLYCHROMASIA SLIGHT
[2017-08-01 20:32] LABS: TARGET CELLS SLIGHT
[2017-08-01 20:33] LABS: PLATELET COMMENT DECREASED; PLATELET LARGE PRESENT
[2017-08-01] MEDS ORDERED: DIPH/PERTUSS(ACELL)/TETANUS VAC/PF 0.5 ML SYR (>=10YO) IM ONE (20:49)
[2017-08-01] MEDS ORDERED: THIAMINE HCL 100 MG, FOLIC ACID 1 MG in NORMAL SALINE 250 ML IV SCH ×2 (21:15→21:30)
--- NOTE | 2017-08-01 22:11 | PDOC H&P ---
History of Present Illness Admission Date/PCP: 08/01/17 21:28 History of Present Illness: ODALYS GUTIERREZ is a 56 year old male patient brought to emergency room after he had seizure and suffered head injury. Since patient sedated after he was given diazepam, is not source of history. Per ER attending notes patient does not have underlying chronic medical problems except his long- standing alcohol abuse. Patient is trying to wean himself from alcohol and his last drink was more than 48 hours. He states that he was standing in the kitchen when he apparently had a seizure. He struck his head on the kitchen table. He is unable to describe any additional details thereafter as he has no recollection. He states he has had one withdrawal seizure in the past under similar circumstances. His initial workup revealed elevated liver chemistries. His CT head is negative for any acute intracranial process. Review of systems a detailed history is unobtainable. Past Medical History Psychiatric Medical History: Reports: Alcohol Dependency Past Surgical History Past Surgical History: Reports: None Social History Lives with: Family Smoking Status: Never Smoker Frequency of Alcohol Use: Heavy Hx Recreational Drug Use: No Hx Prescription Drug Abuse: No Family History Family History: Reviewed & Not Pertinent Parental Family History Reviewed: No - Patient said he Children Family History Reviewed: No Sibling(s) Family History Reviewed.: No Medication/Allergy Home Medications: Disulfiram [Antabuse 250 mg Tablet] 250 mg PO DAILY 10/18/16 Folic Acid [Folvite 1 mg Tablet] 1 mg PO DAILY #30 tablet 10/25/16 Multivitamin [Daily Multiple Vitamin] 1 each PO DAILY #30 tablet 10/25/16 Thiamine HCl [Thiamine 100 mg Tablet] 100 mg PO DAILY #30 tablet 10/25/16 Allergies/Adverse Reactions: No Known Allergies Allergy (Verified 05/07/12 13:43) Review of Systems ROS unobtainable: Due to mental status Physical Exam Vital Signs: Temp Pulse Resp BP Pulse Ox 98 F 19 125/79 97 08/01/17 19:42 08/01/17 21:06 08/01/17 21:06 08/01/17 21:06 General appearance: PRESENT: no acute distress Head exam: PRESENT: other - He has a laceration on the bridge of his nose and oblique laceration on his head frontal area. Respiratory exam: PRESENT: clear to auscultation zoran. ABSENT: rales, rhonchi, wheezes Cardiovascular exam: PRESENT: tachycardia Results Impressions: Head CT 08/01/17 19:20 IMPRESSION: 1. UNREMARKABLE NONCONTRAST CT OF THE BRAIN. 2. RIGHT TEMPORAL SOFT TISSUE SWELLING. 3. MINIMALLY DISPLACED FRACTURE OF THE NASAL BONE. EVIDENCE OF ACUTE STROKE: NO. Assessment & Plan - Diagnosis (1) Alcohol withdrawal Qualifiers: Complication of substance-induced condition: with unspecified complication Qualified Code(s): F10.231 - Alcohol dependence with withdrawal delirium Is this a current diagnosis for this admission?: Yes Plan: Patient has been started on Ativan 2 mg IV every 12 hours as needed and scheduled diazepam. For hydration he is on normal saline at a rate of 1 25 mm/h and he is also on thiamine folic acid and magnesium. (2) Alcohol withdrawal seizure Qualifiers: Complication of substance-induced condition: uncomplicated Qualified Code(s ): F10.230 - Alcohol dependence with withdrawal, uncomplicated Is this a current diagnosis for this admission?: Yes Plan: Patient admitted to [facility]. He has been started on Keppra 500 mg IV twice a day. Precaution for aspiration and close monitoring for seizures. (3) Alcoholic hepatitis Qualifiers: Ascites presence: without ascites Qualified Code(s): K70.10 - Alcoholic hepatitis without ascites Is this a current diagnosis for this admission?: Yes Plan: Supportive treatment. - Time Time Spent: 30 to 50 Minutes Within: Other - 3-4 days - Inpatient Certification Medical Necessity: Need For IV Fluids
[2017-08-01] MEDS ORDERED: LEVETIRACETAM 500 MG/NACL-ISO 500 MG/100 ML RTUPB IV ONE (22:15)
[2017-08-01] MEDS ORDERED: FOLIC ACID INJ 5 MG/1 ML 10 ML VIAL ONE (23:00)
[2017-08-01] MEDS ORDERED: THIAMINE HCL INJ 200 MG/2 ML VIAL ONE (23:00)
[2017-08-01] MEDS: DIAZEPAM 5 MG TABLET PO SCH (23:37)
[2017-08-01] MEDS ORDERED: THIAMINE HCL 100 MG, FOLIC ACID 1 MG in NORMAL SALINE 250 ML IV ONE (23:45)
[2017-08-01] MEDS: NORMAL SALINE 1000 ML 1,000 ML IV PRN (23:59)
[2017-08-02] MEDS: LORAZEPAM INJ 2 MG/1 ML VIAL IV PRN ×4 (02:58→19:53)
[2017-08-02] MEDS: DIAZEPAM 5 MG TABLET PO SCH (05:20)
[2017-08-02 06:27] LABS: ALANINE AMINOTRANSFERASE 108 U/L (21-72); ALBUMIN 3.8 g/dL (3.5-5.0); ALKALINE PHOSPHATASE 112 U/L (38-126); ANION GAP 11 (5-19); ASPARTATE AMINO TRANSFERASE 297 U/L (17-59); BILIRUBIN,DIRECT 2.2 mg/dL (0.0-0.4); BILIRUBIN,TOTAL 4.3 mg/dL (0.2-1.3); BLOOD UREA NITROGEN 10 mg/dL (7-20); CALCIUM 8.6 mg/dL (8.4-10.2); CARBON DIOXIDE 24 mmol/L (22-30); CHLORIDE 106 mmol/L (98-107); GLUCOSE 129 mg/dL (75-110); POTASSIUM 3.7 mmol/L (3.6-5.0); SODIUM 140.8 mmol/L (137-145); TOTAL PROTEIN 6.5 g/dL (6.3-8.2)
[2017-08-02 06:40] LABS: ABSOLUTE LYMPHOCYTES (AUTO) 0.2 10^3/uL (0.5-4.7); ABSOLUTE MONOCYTES (AUTO) 0.3 10^3/uL (0.1-1.4); ABSOLUTE NEUT (AUTO) 2.5 10^3/uL (1.7-8.2); BASOPHILS % (AUTO) 0.1 % (0-2); HEMATOCRIT 35.3 % (37.9-51.0); HEMOGLOBIN 12.2 g/dL (13.5-17.0); LYMPHOCYTES % (AUTO) 6.3 % (13-45); MEAN CORPUSCULAR HEMOGLOBIN 32.9 pg (27.0-33.4); MEAN CORPUSCULAR HGB CONC 34.6 g/dL (32.0-36.0); MEAN CORPUSCULAR VOLUME 95 fl (80-97); MONOCYTES % (AUTO) 9.8 % (3-13); RED BLOOD COUNT 3.71 10^6/uL (4.35-5.55); RED CELL DISTRIBUTION WIDTH 15.4 % (11.5-14.0); SEGMENTED NEUTROPHILS % (AUTO) 83.8 % (42-78); TOTAL CELLS COUNTED % (AUTO) 100 %
[2017-08-02 07:31] LABS: PLATELET COUNT 24 10^3/uL (150-450)
[2017-08-02] MEDS: NORMAL SALINE 1000 ML 1,000 ML IV PRN ×2 (08:44→17:20)
--- NOTE | 2017-08-02 09:58 | EKG REPORT ---
SEVERITY:- ABNORMAL ECG - SINUS TACHYCARDIA PROBABLE LEFT ATRIAL ABNORMALITY BORDERLINE LEFT AXIS DEVIATION : Confirmed by: Juan Alston 02-Aug-2017 09:57:10
[2017-08-02] MEDS ORDERED: ENOXAPARIN SODIUM INJ 40 MG/0.4 ML DISP.SYRIN SUBCUT SCH (10:00)
[2017-08-02] MEDS: LEVETIRACETAM 500 MG/NACL-ISO 500 MG/100 ML RTUPB IV SCH ×2 (10:01→21:46)
[2017-08-02] MEDS: LORAZEPAM INJ 2 MG/1 ML VIAL IV SCH ×3 (11:31→23:14)
--- NOTE | 2017-08-02 12:16 | PDOC PROGRESS REPORT ---
Subjective Progress Note for:: 08/02/17 Subjective:: pt feels a little anxious. He tells me he had his last alcoholic drink on , he stopped drinking because his boss asked him to he tells me. Last night he had a seizure. He has had a seizure in the past from alcohol withdrawal. This morning he states that he is pretty clear headed. He bit his tongue and it is swollen. He is having a hard time judging his food but no difficulty with swallowing or breathing. Chest pain. He does have some facial pain and I gave him the results of his CT scan which show a nasal bone fracture. He has not moved his bowels. No abdominal pain nausea or vomiting. He has never vomited blood. He does not recall ever having black stools or blood per rectum. He does not know if he has varices. No fever or chills. Reason For Visit: ALCOHOL WITHDRAWAL SYNDROME, WITHDRAWAL SEIZURE, Physical Exam Vital Signs: Temp Pulse Resp BP Pulse Ox 98.5 F 106 H 16 147/74 H 99 08/02/17 08:18 08/02/17 08:18 08/02/17 08:18 08/02/17 08:18 08/02/17 08:18 Intake & Output 08/01/17 08/02/17 08/03/17 06:59 06:59 06:59 Intake Total 622 Output Total 1200 Balance -578 Weight 77.3 kg General appearance: PRESENT: no acute distress, cooperative, disheveled Head exam: PRESENT: atraumatic, normocephalic, other - Face exampatient has ecchymoses scattered over the face in particular at the apex of the nose Eye exam: PRESENT: conjunctival injection, EOMI. ABSENT: scleral icterus Ear exam: PRESENT: normal external ear exam Mouth exam: PRESENT: moist, other - Patient's tongue is purple and edematous Neck exam: ABSENT: lymphadenopathy, tenderness Respiratory exam: PRESENT: unlabored. ABSENT: rales, rhonchi, wheezes Cardiovascular exam: PRESENT: RRR. ABSENT: systolic murmur Pulses: PRESENT: normal radial pulses GI/Abdominal exam: PRESENT: normal bowel sounds, soft. ABSENT: ascites, distended, firm, tenderness Rectal exam: PRESENT: deferred Extremities exam: ABSENT: pedal edema Musculoskeletal exam: PRESENT: normal inspection Neurological exam: PRESENT: alert, awake, oriented to person, oriented to place , oriented to situation, CN II-XII grossly intact Psychiatric exam: PRESENT: appropriate affect. ABSENT: anxious Skin exam: PRESENT: abrasion, dry, warm Results Laboratory Results: 08/02/17 06:04 08/02/17 06:04 08/02/17 08/02/17 08/02/17 06:04 06:04 06:04 WBC 3.0 L RBC 3.71 L Hgb 12.2 L Hct 35.3 L MCV 95 MCH 32.9 MCHC 34.6 RDW 15.4 H Plt Count 24 L* Seg Neutrophils % 83.8 H Lymphocytes % 6.3 L Monocytes % 9.8 Eosinophils % 0.0 Basophils % 0.1 Absolute Neutrophils 2.5 Absolute Lymphocytes 0.2 L Absolute Monocytes 0.3 Absolute Eosinophils 0.0 Absolute Basophils 0.0 Sodium 140.8 Potassium 3.7 Chloride 106 Carbon Dioxide 24 Anion Gap 11 BUN 10 Creatinine 0.61 Est GFR ( Amer) > 60 Est GFR (Non-Af Amer) > 60 Glucose 129 H Calcium 8.6 Total Bilirubin 4.3 H AST 297 H ALT 108 H Alkaline Phosphatase 112 Ammonia 13.8 Total Protein 6.5 Albumin 3.8 Impressions: Head CT 08/01/17 19:20 IMPRESSION: 1. UNREMARKABLE NONCONTRAST CT OF THE BRAIN. 2. RIGHT TEMPORAL SOFT TISSUE SWELLING. 3. MINIMALLY DISPLACED FRACTURE OF THE NASAL BONE. EVIDENCE OF ACUTE STROKE: NO. Assessment & Plan - Diagnosis (1) Alcohol withdrawal Qualifiers: Complication of substance-induced condition: with unspecified complication Qualified Code(s): F10.239 - Alcohol dependence with withdrawal, unspecified Is this a current diagnosis for this admission?: Yes Plan: Patient is an alcohol withdrawal which is moderate at this time. He is now on Ativan 2 mg IV every 6 hours scheduled with 2 mg of Ativan IV every 2 hours as needed signs of alcohol withdrawal. I have discussed this with his nurse who knows to call me if she is unsure as to whether or not to give the as needed Ativan. (2) Alcohol withdrawal seizure Qualifiers: Complication of substance-induced condition: uncomplicated Qualified Code(s ): F10.230 - Alcohol dependence with withdrawal, uncomplicated Is this a current diagnosis for this admission?: Yes Plan: Patient has had alcohol withdrawal seizures in the past. The admitting physician started him on Keppra as we cannot be entirely sure that this is not seizure of other etiology. Will continue this for now and under the care of a primary care physician once patient is stable we can probably stop his Keppra. (3) Alcoholic hepatitis Qualifiers: Ascites presence: without ascites Qualified Code(s): K70.10 - Alcoholic hepatitis without ascites Is this a current diagnosis for this admission?: Yes Plan: Transaminitis, secondary to alcohol abuse. Also patient has elevated bilirubin. The numbers are improving today. We will continue to monitor. No abdominal pain. Will check a hepatitis panel as well. (4) Nasal fracture Qualifiers: Encounter type: initial encounter Fracture type: closed Qualified Code(s) : S02.2XXA - Fracture of nasal bones, initial encounter for closed fracture Is this a current diagnosis for this admission?: Yes Plan: Seen on CT scan of the head. Probably sequelae of his alcohol withdrawal seizure, fracture with mild displacement. Patient has tenderness. We will continue to monitor. (5) Coagulopathy Is this a current diagnosis for this admission?: Yes Plan: Likely related to his alcoholic liver disease. Once patient is feeling better and through withdrawal we can begin to educate him about his sequelae of alcoholic liver disease. (6) Leukopenia Qualifiers: Leukopenia type: unspecified Qualified Code(s): D72.819 - Decreased white blood cell count, unspecified Is this a current diagnosis for this admission?: Yes Plan: Secondary to call use disorder. Will monitor. (7) Thrombocytopenia Is this a current diagnosis for this admission?: Yes Plan: Secondary to alcohol use disorder. Will monitor. (8) Alcohol use disorder Is this a current diagnosis for this admission?: Yes Plan: This is severe. The patient has been abusing alcohol for many years. Within the past few years he was sober for 3 years and was attending AA meetings. He would like to try to do this again. I will speak with assistant case manager tomorrow to see if we have any counseling resources available. - Time Time Spent with patient: 25-34 minutes - Inpatient Certification Based on my medical assessment, after consideration of the patient's comorbidities, presenting symptoms, or acuity I expect that the services needed warrant INPATIENT care.: Yes I certify that my determination is in accordance with my understanding of Medicare's requirements for reasonable and necessary INPATIENT services [42 CFR 412.3e].: Yes Medical Necessity: Significant Comorbidiites Make Outpatient Treatment Too Risky , Need Close Monitoring Due to Risk of Patient Decompensation, Need For Continuous Telemetry Monitoring, Risk of Complication if Not Cared For in Hospital
--- NOTE | 2017-08-02 21:37 | RADIOLOGY REPORT (SQ) ---
EXAM DESCRIPTION: U/S ABDOMEN LIMITED W/O DOP COMPLETED DATE/TIME: 08/02/2017 9:27 pm REASON FOR STUDY: eval for cirrhosis COMPARISON: None. TECHNIQUE: Dynamic and static grayscale images acquired of the abdomen and recorded on PACS. Additio nal selected color Doppler and spectral images recorded. LIMITATIONS: None. FINDINGS: PANCREAS: No masses. No peripancreatic edema or fluid collections. LIVER: Echotexture is coarse with increased echogenicity. Somewhat nodular but no focal lesions. LIVER VASCULATURE: Normal directional flow of the main portal vein and hepatic veins. GALLBLADDER: No stones. Normal wall thickness. No pericholecystic fluid. ULTRASOUND-DETECTED MARCH'S SIGN: Negative. INTRAHEPATIC DUCTS AND COMMON DUCT: CBD and intrahepatic ducts normal caliber. No filling defects. INFERIOR VENA CAVA: Normal flow. AORTA: No aneurysm. RIGHT KIDNEY: Normal size. Normal echogenicity. No solid or suspicious masses. No hydronephrosis. No calcifications. PERITONEAL AND RIGHT PLEURAL SPACE: No ascites or effusions. OTHER: No other significant finding. IMPRESSION: HETEROGENOUS NODULAR APPEARANCE OF THE LIVER WITH INCREASED ECHOGENICITY. THIS COULD BE DUE TO FATTY INFILTRATION AND/OR CIRRHOSIS. TECHNICAL DOCUMENTATION: JOB ID: [id number] [employer]- All Rights Reserved Reading location - IP/workstation name: [email or web address]
[2017-08-02] MEDS: THIAMINE HCL 100 MG, FOLIC ACID 1 MG in NORMAL SALINE 250 ML IV SCH (22:06)
[2017-08-03] MEDS: LORAZEPAM INJ 2 MG/1 ML VIAL IV PRN ×2 (02:03→22:04)
[2017-08-03] MEDS: LORAZEPAM INJ 2 MG/1 ML VIAL IV SCH ×5 (05:33→23:16)
[2017-08-03 06:23] LABS: HEMATOCRIT 36.2 % (37.9-51.0); HEMOGLOBIN 12.4 g/dL (13.5-17.0); MEAN CORPUSCULAR HEMOGLOBIN 32.9 pg (27.0-33.4); MEAN CORPUSCULAR HGB CONC 34.2 g/dL (32.0-36.0); MEAN CORPUSCULAR VOLUME 96 fl (80-97); RED BLOOD COUNT 3.77 10^6/uL (4.35-5.55); RED CELL DISTRIBUTION WIDTH 15.4 % (11.5-14.0); WHITE BLOOD COUNT 3.3 10^3/uL (4.0-10.5)
[2017-08-03 06:46] LABS: ANION GAP 11 (5-19); BLOOD UREA NITROGEN 7 mg/dL (7-20); CALCIUM 8.4 mg/dL (8.4-10.2); CARBON DIOXIDE 27 mmol/L (22-30); CHLORIDE 104 mmol/L (98-107); GLUCOSE 85 mg/dL (75-110); POTASSIUM 3.1 mmol/L (3.6-5.0)
[2017-08-03 07:20] LABS: PLATELET COUNT 32 10^3/uL (150-450)
[2017-08-03] MEDS: POTASSIUM CHLORIDE 10 MEQ TABLET.SA PO SCH ×2 (09:29→18:15)
[2017-08-03] MEDS: LEVETIRACETAM 500 MG/NACL-ISO 500 MG/100 ML RTUPB IV SCH ×2 (09:29→22:04)
[2017-08-03] MEDS: NORMAL SALINE 1000 ML 1,000 ML IV PRN ×2 (12:13→19:58)
--- NOTE | 2017-08-03 15:16 | PDOC PROGRESS REPORT ---
Subjective Progress Note for:: 08/03/17 Subjective:: Patient is a little confused he does not know the date. He does know who he is and that he is in the hospital. He is not having any acute pain. No headache or vision changes. He is able to eat his pured diet without too much assistance. He is not choking on his food. He is able to get the pured diet down better than the regular diet. His tongue swelling has improved. No abdominal pain nausea vomiting or bleeding. No chest pain or difficulty bleeding. Reason For Visit: ALCOHOL WITHDRAWAL SYNDROME, WITHDRAWAL SEIZURE, Physical Exam Vital Signs: Temp Pulse Resp BP Pulse Ox 99.1 F 106 H 16 140/85 H 98 08/03/17 11:24 08/03/17 14:00 08/03/17 11:24 08/03/17 11:24 08/03/17 11:24 Intake & Output 08/02/17 08/03/17 08/04/17 06:59 06:59 06:59 Intake Total 622 3450 600 Output Total 1200 1300 350 Balance -578 2150 250 Weight 77.3 kg 77 kg General appearance: PRESENT: disheveled Head exam: PRESENT: atraumatic, normocephalic, other - Patient has facial bruising, ecchymoses under the eyes around the nose. Eye exam: PRESENT: conjunctival injection. ABSENT: scleral icterus Ear exam: PRESENT: normal external ear exam Mouth exam: PRESENT: moist, other - Tongue with laceration, not actively bleeding, bruised, edema improving Respiratory exam: PRESENT: clear to auscultation zoran, unlabored. ABSENT: rales , rhonchi, wheezes Cardiovascular exam: PRESENT: tachycardia. ABSENT: systolic murmur Pulses: PRESENT: normal radial pulses GI/Abdominal exam: PRESENT: normal bowel sounds, soft. ABSENT: distended, guarding, tenderness Rectal exam: PRESENT: deferred Gentrourinary exam: ABSENT: lesions Musculoskeletal exam: ABSENT: tenderness Neurological exam: PRESENT: alert, altered, oriented to person, oriented to place. ABSENT: oriented to time, oriented to situation Psychiatric exam: PRESENT: anxious Skin exam: PRESENT: intact, warm. ABSENT: rash Results Laboratory Results: 08/03/17 05:59 08/03/17 05:59 08/03/17 08/03/17 05:59 05:59 WBC 3.3 L RBC 3.77 L Hgb 12.4 L Hct 36.2 L MCV 96 MCH 32.9 MCHC 34.2 RDW 15.4 H Plt Count 32 L Sodium 142.0 Potassium 3.1 L Chloride 104 Carbon Dioxide 27 Anion Gap 11 BUN 7 Creatinine 0.60 Est GFR ( Amer) > 60 Est GFR (Non-Af Amer) > 60 Glucose 85 Calcium 8.4 Impressions: Head CT 08/01/17 19:20 IMPRESSION: 1. UNREMARKABLE NONCONTRAST CT OF THE BRAIN. 2. RIGHT TEMPORAL SOFT TISSUE SWELLING. 3. MINIMALLY DISPLACED FRACTURE OF THE NASAL BONE. EVIDENCE OF ACUTE STROKE: NO. Abdomen Ultrasound 08/02/17 00:00 IMPRESSION: HETEROGENOUS NODULAR APPEARANCE OF THE LIVER WITH INCREASED ECHOGENICITY. THIS COULD BE DUE TO FATTY INFILTRATION AND/OR CIRRHOSIS. Assessment & Plan - Diagnosis (1) Alcohol withdrawal Qualifiers: Complication of substance-induced condition: with unspecified complication Qualified Code(s): F10.239 - Alcohol dependence with withdrawal, unspecified Is this a current diagnosis for this admission?: Yes Plan: Patient is actively withdrawing. I have changed his scheduled Ativan to 2 mg IV every 4 hours. He also has Ativan 2 mg IV every 2 hours as needed. (2) Alcohol withdrawal seizure Qualifiers: Complication of substance-induced condition: uncomplicated Qualified Code(s ): F10.230 - Alcohol dependence with withdrawal, uncomplicated Is this a current diagnosis for this admission?: Yes Plan: The admitting doctor placed him on Keppra as we cannot be entirely clear that this was alcohol withdrawal, though this is very likely. We will keep him on Keppra for now and once he is stable he can be weaned off by his primary care physician. He is on seizure precautions. (3) Alcoholic hepatitis Qualifiers: Ascites presence: without ascites Qualified Code(s): K70.10 - Alcoholic hepatitis without ascites Is this a current diagnosis for this admission?: Yes Plan: Transaminitis improving. Hepatitis panel pending. (4) Nasal fracture Qualifiers: Encounter type: initial encounter Fracture type: closed Qualified Code(s) : S02.2XXA - Fracture of nasal bones, initial encounter for closed fracture Is this a current diagnosis for this admission?: Yes Plan: Patient with facial bruising and some pain. Will monitor. (5) Coagulopathy Is this a current diagnosis for this admission?: Yes Plan: Secondary to alcohol use disorder. Also platelets are low. Not on DVT prophylaxis. Monitor. Not actively bleeding. He is ecchymotic on the face after fall during a seizure. (6) Leukopenia Qualifiers: Leukopenia type: unspecified Qualified Code(s): D72.819 - Decreased white blood cell count, unspecified Is this a current diagnosis for this admission?: Yes Plan: Likely secondary to alcohol use disorder. Will monitor. No fever or chills or other evidence of infection. (7) Thrombocytopenia Is this a current diagnosis for this admission?: Yes Plan: Secondary to alcohol use disorder. Coagulopathy above. (8) Alcohol use disorder Is this a current diagnosis for this admission?: Yes Plan: Once patient is through withdrawal we can talk about alcohol cessation counseling and other resources. He has used AA in the past with good success, recently he was sober for 3 years using AA. - Time Time Spent with patient: 25-34 minutes Medications reviewed and adjusted accordingly: Yes - Inpatient Certification Based on my medical assessment, after consideration of the patient's comorbidities, presenting symptoms, or acuity I expect that the services needed warrant INPATIENT care.: Yes I certify that my determination is in accordance with my understanding of Medicare's requirements for reasonable and necessary INPATIENT services [42 CFR 412.3e].: Yes Medical Necessity: Need Close Monitoring Due to Risk of Patient Decompensation, Risk of Complication if Not Cared For in Hospital
[2017-08-03] MEDS: THIAMINE HCL 100 MG, FOLIC ACID 1 MG in NORMAL SALINE 250 ML IV SCH (22:04)
[2017-08-04] MEDS: LORAZEPAM INJ 2 MG/1 ML VIAL IV PRN (01:17)
[2017-08-04 02:08] LABS: APPEARANCE,URINE CLEAR; BILIRUBIN,URINE NEGATIVE (NEGATIVE); COLOR,URINE YELLOW; GLUCOSE, URINE NEGATIVE (NEGATIVE); KETONES,URINE NEGATIVE (NEGATIVE); LEUKOCYTE ESTERASE,URINE NEGATIVE (NEGATIVE); NITRITE,URINE NEGATIVE (NEGATIVE); PROTEIN,URINE NEGATIVE (NEGATIVE); URINE SPECIFIC GRAVITY 1.008
[2017-08-04] MEDS: LORAZEPAM INJ 2 MG/1 ML VIAL IV SCH ×5 (04:11→21:06)
[2017-08-04 05:39] LABS: HEPATITIS A AB IGM Negative (Negative); HEPATITIS B CORE AB IGM Negative (Negative); HEPATITS B SURFACE ANTIGEN Negative (Negative)
[2017-08-04] MEDS: NORMAL SALINE 1000 ML 1,000 ML IV PRN (06:27)
[2017-08-04] MEDS ORDERED: FOLIC ACID INJ 5 MG/1 ML 10 ML VIAL IV SCH (07:30)
[2017-08-04] MEDS ORDERED: POTASSIUM CHLORIDE 10 MEQ TABLET.SA PO ONE (07:30)
[2017-08-04 09:07] LABS: HEPATITIS C VIRUS ANTIBODY 0.1 s/co ratio (0.0-0.9)
[2017-08-04] MEDS: LEVETIRACETAM 500 MG/NACL-ISO 500 MG/100 ML RTUPB IV SCH ×2 (11:25→21:06)
--- NOTE | 2017-08-04 15:55 | PDOC PROGRESS REPORT ---
Subjective Progress Note for:: 08/04/17 Subjective:: The patient is resting in his bed. He is not in restraints. He is awake and alert and answers questions appropriately. He states that he remembers that he fell and hit his head. He states he was drinking a little bit but did not think he had drank very much that night. He does not remember anything else after he came to the hospital. He was unaware that he had been through alcohol withdrawal. He states that he usually drank 1 pint of alcohol every 2-3 days at home. Overall he states he has had no fever chills. He states his face is quite sore. He does not have a headache today. No nausea vomiting or diarrhea. He states his appetite is good. He states he is having normal bowel movements and is voiding without difficulty. Reason For Visit: ALCOHOL WITHDRAWAL SYNDROME, WITHDRAWAL SEIZURE, Physical Exam Vital Signs: Temp Pulse Resp BP Pulse Ox 99.9 F 104 H 16 137/82 H 97 08/04/17 11:09 08/04/17 14:00 08/04/17 11:09 08/04/17 11:09 08/04/17 11:09 Intake & Output 08/03/17 08/04/17 08/05/17 06:59 06:59 06:59 Intake Total 3450 5131 565 Output Total 1300 2050 1200 Balance 2150 3081 -635 Weight 77 kg 74.8 kg General appearance: PRESENT: no acute distress, disheveled, well-developed, well -nourished Head exam: PRESENT: normocephalic, other - The patient has raccoon eyes and significant bruising Mouth exam: PRESENT: moist, tongue midline Respiratory exam: PRESENT: clear to auscultation zoran. ABSENT: rales, rhonchi, wheezes Cardiovascular exam: PRESENT: tachycardia. ABSENT: diastolic murmur, rubs, systolic murmur GI/Abdominal exam: PRESENT: normal bowel sounds, soft. ABSENT: distended, guarding, mass, organolmegaly, rebound, tenderness Rectal exam: PRESENT: deferred Extremities exam: PRESENT: full ROM. ABSENT: calf tenderness, clubbing, pedal edema Neurological exam: PRESENT: alert, awake, oriented to person, oriented to place , oriented to time, oriented to situation, CN II-XII grossly intact. ABSENT: motor sensory deficit Psychiatric exam: PRESENT: appropriate affect Skin exam: PRESENT: other - Significant ecchymosis around both of his eyes and nose with swelling in of his eyes. Results Laboratory Results: 08/03/17 05:59 08/03/17 05:59 08/04/17 08/04/17 01:47 07:58 Phosphorus 4.2 Urine Color YELLOW Urine Appearance CLEAR Urine pH 7.0 Ur Specific [place] 1.008 Urine Protein NEGATIVE Urine Glucose (UA) NEGATIVE Urine Ketones NEGATIVE Urine Blood NEGATIVE Urine Nitrite NEGATIVE Ur Leukocyte Esterase NEGATIVE Urine WBC (Auto) 0 Urine RBC (Auto) 0 Impressions: Head CT 08/01/17 19:20 IMPRESSION: 1. UNREMARKABLE NONCONTRAST CT OF THE BRAIN. 2. RIGHT TEMPORAL SOFT TISSUE SWELLING. 3. MINIMALLY DISPLACED FRACTURE OF THE NASAL BONE. EVIDENCE OF ACUTE STROKE: NO. Abdomen Ultrasound 08/02/17 00:00 IMPRESSION: HETEROGENOUS NODULAR APPEARANCE OF THE LIVER WITH INCREASED ECHOGENICITY. THIS COULD BE DUE TO FATTY INFILTRATION AND/OR CIRRHOSIS. Assessment & Plan - Diagnosis (1) Alcohol withdrawal Qualifiers: Complication of substance-induced condition: with unspecified complication Qualified Code(s): F10.239 - Alcohol dependence with withdrawal, unspecified Is this a current diagnosis for this admission?: Yes Plan: The patient seems to be coming out of his alcohol withdrawal. He has been receiving 2 mg of IV Ativan every 4 hours on a scheduled basis. I am going to cut this back to 1 mg every 6 hours on a scheduled basis and will start transitioning him hopefully to an oral regimen tomorrow. (2) Alcohol withdrawal seizure Qualifiers: Complication of substance-induced condition: uncomplicated Qualified Code(s ): F10.230 - Alcohol dependence with withdrawal, uncomplicated Is this a current diagnosis for this admission?: Yes Plan: Continue IV Keppra for now. (3) Alcoholic hepatitis Qualifiers: Ascites presence: without ascites Qualified Code(s): K70.10 - Alcoholic hepatitis without ascites Is this a current diagnosis for this admission?: Yes Plan: His liver function tests are slowly trending downwards. Still quite elevated (4) Nasal fracture Qualifiers: Encounter type: initial encounter Fracture type: closed Qualified Code(s) : S02.2XXA - Fracture of nasal bones, initial encounter for closed fracture Is this a current diagnosis for this admission?: Yes Plan: Will monitor. He is not complaining of pain today. (5) Pancytopenia Is this a current diagnosis for this admission?: Yes Plan: Likely due to his alcohol use. Further discussions need to be had with the patient. Certainly absolute abstinence is recommended from alcohol at this point. (6) Alcohol use disorder Is this a current diagnosis for this admission?: Yes Plan: Again now that he is coming around we will have further discussions. He certainly would benefit from abstinence and rehab. (7) Hyponatremia Is this a current diagnosis for this admission?: Yes Plan: Resolved. (8) Hypokalemia Is this a current diagnosis for this admission?: Yes Plan: This will be repleted today. He will have a level drawn tomorrow - Time Time Spent with patient: 25-34 minutes - Inpatient Certification Medical Necessity: Other - Inpatient hospitalization remains necessary. The patient has had a rather significant alcohol withdrawal. He is just now starting to improve. He still requiring parenteral Ativan. Timing of disposition will be determined by his clinical course
[2017-08-04] MEDS: THIAMINE HCL 100 MG, FOLIC ACID 1 MG in NORMAL SALINE 250 ML IV SCH (21:06)
[2017-08-05] MEDS: NORMAL SALINE 1000 ML 1,000 ML IV PRN (01:08)
[2017-08-05] MEDS: LORAZEPAM INJ 2 MG/1 ML VIAL IV SCH ×2 (03:25→10:15)
[2017-08-05 05:54] LABS: ABSOLUTE BASOPHILS # (AUTO) 0.1 10^3/uL (0.0-0.2); ABSOLUTE LYMPHOCYTES (AUTO) 0.8 10^3/uL (0.5-4.7); ABSOLUTE MONOCYTES (AUTO) 0.6 10^3/uL (0.1-1.4); BASOPHILS % (AUTO) 1.9 % (0-2); EOSINOPHILS % (AUTO) 1.3 % (0-6); HEMATOCRIT 35.8 % (37.9-51.0); HEMOGLOBIN 12.2 g/dL (13.5-17.0); LYMPHOCYTES % (AUTO) 23.7 % (13-45); MEAN CORPUSCULAR HGB CONC 34.1 g/dL (32.0-36.0); MEAN CORPUSCULAR VOLUME 97 fl (80-97); MONOCYTES % (AUTO) 17.4 % (3-13); RED CELL DISTRIBUTION WIDTH 15.4 % (11.5-14.0); SEGMENTED NEUTROPHILS % (AUTO) 55.7 % (42-78); TOTAL CELLS COUNTED % (AUTO) 100 %; WHITE BLOOD COUNT 3.6 10^3/uL (4.0-10.5)
[2017-08-05 06:28] LABS: ALANINE AMINOTRANSFERASE 73 U/L (21-72); ALBUMIN 3.3 g/dL (3.5-5.0); ALKALINE PHOSPHATASE 106 U/L (38-126); ANION GAP 12 (5-19); ASPARTATE AMINO TRANSFERASE 110 U/L (17-59); BILIRUBIN,DIRECT 1.4 mg/dL (0.0-0.4); BILIRUBIN,TOTAL 2.8 mg/dL (0.2-1.3); BLOOD UREA NITROGEN 6 mg/dL (7-20); CALCIUM 8.6 mg/dL (8.4-10.2); CARBON DIOXIDE 23 mmol/L (22-30); CHLORIDE 107 mmol/L (98-107); GLUCOSE 93 mg/dL (75-110); POTASSIUM 3.7 mmol/L (3.6-5.0); SODIUM 141.6 mmol/L (137-145); TOTAL PROTEIN 6.2 g/dL (6.3-8.2)
[2017-08-05 06:38] LABS: PLATELET COUNT 63 10^3/uL (150-450)
[2017-08-05 08:02] LABS: HEMATOCRIT 35.6 % (37.9-51.0); MEAN CORPUSCULAR HEMOGLOBIN 32.8 pg (27.0-33.4); MEAN CORPUSCULAR HGB CONC 33.6 g/dL (32.0-36.0); MEAN CORPUSCULAR VOLUME 98 fl (80-97); RED BLOOD COUNT 3.65 10^6/uL (4.35-5.55); RED CELL DISTRIBUTION WIDTH 15.5 % (11.5-14.0); WHITE BLOOD COUNT 3.7 10^3/uL (4.0-10.5)
[2017-08-05 08:25] LABS: PLATELET COUNT 62 10^3/uL (150-450)
[2017-08-05 08:28] LABS: ANION GAP 11 (5-19); BLOOD UREA NITROGEN 6 mg/dL (7-20); CALCIUM 8.5 mg/dL (8.4-10.2); CARBON DIOXIDE 22 mmol/L (22-30); CHLORIDE 107 mmol/L (98-107); GLUCOSE 94 mg/dL (75-110); POTASSIUM 3.8 mmol/L (3.6-5.0); SODIUM 140.2 mmol/L (137-145)
[2017-08-05] MEDS: LEVETIRACETAM 500 MG/NACL-ISO 500 MG/100 ML RTUPB IV SCH (10:15)
[2017-08-05] MEDS ORDERED: LORAZEPAM 1 MG TABLET PO PRN (11:40)
[2017-08-05] MEDS ORDERED: LORAZEPAM INJ 2 MG/1 ML VIAL IV PRN (11:42)
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
[2017-08-05] MEDS: FOLIC ACID 1 MG TABLET PO SCH (17:25)
[2017-08-05] MEDS: THIAMINE HCL 100 MG TABLET PO SCH (17:25)
[2017-08-05] MEDS: LEVETIRACETAM 500 MG TABLET PO SCH (21:26)
[2017-08-05] MEDS ORDERED: ACETAMINOPHEN 325 MG TABLET PO PRN (21:48)
[2017-08-05] MEDS ORDERED: LACTULOSE SYRUP 20 GM/30 ML UDCUP PO ONE (22:00)
[2017-08-06] MEDS: LEVETIRACETAM 500 MG TABLET PO SCH ×2 (09:13→21:43)
[2017-08-06] MEDS: THIAMINE HCL 100 MG TABLET PO SCH (17:28)
[2017-08-06] MEDS: FOLIC ACID 1 MG TABLET PO SCH (17:28)
--- NOTE | 2017-08-06 18:15 | PDOC PROGRESS REPORT ---
Subjective Progress Note for:: 08/06/17 Subjective:: Patient is a 56 years old male patient admitted for alcohol withdrawal , withdrawal seizure, head injury following the seizure and alcoholic hepatitis. Currently patient is out of danger of delirium tremens. I am about to discharge this patient but he complains that he does not have good balance and he is shaky. Reason For Visit: ALCOHOL WITHDRAWAL SYNDROME, WITHDRAWAL SEIZURE, Physical Exam Vital Signs: Temp Pulse Resp BP Pulse Ox 98.6 F 88 15 127/83 H 97 08/06/17 15:47 08/06/17 15:47 08/06/17 15:47 08/06/17 15:47 08/06/17 15:47 Intake & Output 08/05/17 08/06/17 08/07/17 06:59 06:59 06:59 Intake Total 5373 2740 591 Output Total 4150 2050 Balance 1223 690 591 Weight 77.8 kg 76.9 kg General appearance: PRESENT: no acute distress Head exam: PRESENT: other - Healing lacerations on his bridge of his nose and left frontal area. Patient also bilateral raccoon sign. Respiratory exam: PRESENT: clear to auscultation zoran. ABSENT: rales, rhonchi, wheezes Cardiovascular exam: PRESENT: RRR. ABSENT: diastolic murmur, rubs, systolic murmur GI/Abdominal exam: PRESENT: normal bowel sounds, soft. ABSENT: distended, guarding, mass, organolmegaly, rebound, tenderness Neurological exam: PRESENT: alert, altered, oriented to time, oriented to situation Results Laboratory Results: 08/05/17 07:50 08/05/17 07:50 08/06/17 04:13 Magnesium 2.0 Impressions: Head CT 08/01/17 19:20 IMPRESSION: 1. UNREMARKABLE NONCONTRAST CT OF THE BRAIN. 2. RIGHT TEMPORAL SOFT TISSUE SWELLING. 3. MINIMALLY DISPLACED FRACTURE OF THE NASAL BONE. EVIDENCE OF ACUTE STROKE: NO. Abdomen Ultrasound 08/02/17 00:00 IMPRESSION: HETEROGENOUS NODULAR APPEARANCE OF THE LIVER WITH INCREASED ECHOGENICITY. THIS COULD BE DUE TO FATTY INFILTRATION AND/OR CIRRHOSIS. Assessment & Plan - Diagnosis (1) Alcohol withdrawal Qualifiers: Complication of substance-induced condition: with unspecified complication Qualified Code(s): F10.239 - Alcohol dependence with withdrawal, unspecified Is this a current diagnosis for this admission?: Yes Plan: Patient has been started on Ativan 2 mg IV every 12 hours as needed and scheduled diazepam. For hydration he is on normal saline at a rate of 1 25 mm/h and he is also on thiamine folic acid and magnesium. (2) Alcohol withdrawal seizure Qualifiers: Complication of substance-induced condition: uncomplicated Qualified Code(s ): F10.230 - Alcohol dependence with withdrawal, uncomplicated Is this a current diagnosis for this admission?: Yes Plan: Patient admitted to [facility]. He has been started on Keppra 500 mg IV twice a day. Precaution for aspiration and close monitoring for seizures. No seizure activity since admission. (3) Alcoholic hepatitis Qualifiers: Ascites presence: without ascites Qualified Code(s): K70.10 - Alcoholic hepatitis without ascites Is this a current diagnosis for this admission?: Yes Plan: Supportive treatment. He has liver chemistries are improving. - Time Time Spent with patient: Less than 15 minutes - Inpatient Certification Medical Necessity: Need Close Monitoring Due to Risk of Patient Decompensation
[2017-08-07 08:50] VITALS: BP 125/84
[2017-08-07] MEDS: LEVETIRACETAM 500 MG TABLET PO SCH (11:04)
--- NOTE | 2017-08-07 12:27 | PDOC DISCHARGE SUMMARY ---
General - Admit/Disc Date/PCP Admission Date/Primary Care Provider: 08/01/17 21:28 Discharge Date: 08/07/17 - Discharge Diagnosis (1) Alcohol withdrawal Is this a current diagnosis for this admission?: Yes (2) Alcohol withdrawal seizure Is this a current diagnosis for this admission?: Yes (3) Alcoholic hepatitis Is this a current diagnosis for this admission?: Yes - Additional Information Discharge Diet: Regular Discharge Activity: Activity As Tolerated, No Driving, Other Prescriptions: Folic Acid [Folvite 1 mg Tablet] 1 mg PO QPM #30 tablet Thiamine HCl [Thiamine 100 mg Tablet] 100 mg PO QPM #30 tablet Home Medications: Folic Acid [Folvite 1 mg Tablet] 1 mg PO QPM #30 tablet 08/07/17 Thiamine HCl [Thiamine 100 mg Tablet] 100 mg PO QPM #30 tablet 08/07/17 History of Present Illness History of Present Illness: ODALYS GUTIERREZ is a 56 year old male patient brought to emergency room after he had seizure and suffered head injury. Since patient sedated after he was given diazepam, is not source of history. Per ER attending notes patient does not have underlying chronic medical problems except his long- standing alcohol abuse. Patient is trying to wean himself from alcohol and his last drink was more than 48 hours. He states that he was standing in the kitchen when he apparently had a seizure. He struck his head on the kitchen table. He is unable to describe any additional details thereafter as he has no recollection. He states he has had one withdrawal seizure in the past under similar circumstances. His initial workup revealed elevated liver chemistries. His CT head is negative for any acute intracranial process. Review of systems a detailed history is unobtainable. Hospital Course Hospital Course: Patient has been managed with IV fluids to hydrate him and so replaced his thiamine, folic acid and magnesium. For his withdrawal seizure patient was put on Keppra 500 mg IV twice daily and no seizure activity witnessed since his admission. For alcohol withdrawal he has been on Ativan 2 mg IV every 12 hours as needed and scheduled diazepam. Patient has not showed any symptoms of delirium tremens. His laceration on his nasal bridge and on the frontal area of his head has been healing. I have a long discussion with the patient regarding the consequence of alcohol abuse and I encouraged him to quit and he voiced agreement. Physical Exam Vital Signs: Temp Pulse Resp BP Pulse Ox 98.9 F 88 15 125/84 96 08/07/17 11:52 08/07/17 11:52 08/07/17 11:52 08/07/17 08:06 08/07/17 11:52 Intake & Output 08/06/17 08/07/17 08/08/17 06:59 06:59 06:59 Intake Total 2740 2105 Output Total 2050 850 Balance 690 1255 Weight 76.9 kg 74.4 kg General appearance: PRESENT: no acute distress Head exam: PRESENT: other - He has raccoon's eye and healing laceration on the bridge of his nose Eye exam: PRESENT: conjunctival injection Respiratory exam: PRESENT: clear to auscultation zoran. ABSENT: rales, rhonchi, wheezes Cardiovascular exam: PRESENT: RRR. ABSENT: diastolic murmur, rubs, systolic murmur GI/Abdominal exam: PRESENT: normal bowel sounds, soft. ABSENT: distended, guarding, mass, organolmegaly, rebound, tenderness Neurological exam: PRESENT: alert, awake, oriented to time, oriented to situation Results Laboratory Results: 08/05/17 07:50 08/05/17 07:50 Impressions: Head CT 08/01/17 19:20 IMPRESSION: 1. UNREMARKABLE NONCONTRAST CT OF THE BRAIN. 2. RIGHT TEMPORAL SOFT TISSUE SWELLING. 3. MINIMALLY DISPLACED FRACTURE OF THE NASAL BONE. EVIDENCE OF ACUTE STROKE: NO. Abdomen Ultrasound 08/02/17 00:00 IMPRESSION: HETEROGENOUS NODULAR APPEARANCE OF THE LIVER WITH INCREASED ECHOGENICITY. THIS COULD BE DUE TO FATTY INFILTRATION AND/OR CIRRHOSIS. Qualifiers - * PATEINT BEING DISCHARGED WITH ANY OF THE FOLLOWING DIAGNOSIS?: No Plan Time Spent: Greater than 30 Minutes
== END 2017-08-07 14:13 | disposition home or self-care (01) | DRG 897 ==
LOC: ER 19:05 → EEVIPCON 19:05 → EH 21:28 → 3N 23:18
PROVIDERS: ADMIT Internal Medicine; ATTEND Internal Medicine
PROC: 3E0234Z Introduction of Serum, Toxoid and Vaccine into Muscle, Percutaneous Approach (ICD-10-PCS; principal; 2017-08-01)
DX: F10.239 Alcohol dependence with withdrawal, unspecified (principal); G40.509 Epileptic seizures related to external causes, not intractable, without status epilepticus; D61.818 Other pancytopenia; E87.1 Hypo-osmolality and hyponatremia; K70.10 Alcoholic hepatitis without ascites; W01.190A Fall on same level from slipping, tripping and stumbling with subsequent striking against furniture, initial encounter; S01.21XA Laceration without foreign body of nose, initial encounter; F10.231 Alcohol dependence with withdrawal delirium; S02.2XXA Fracture of nasal bones, initial encounter for closed fracture; D69.59 Other secondary thrombocytopenia; E87.6 Hypokalemia; Z23 Encounter for immunization
CPT/HCPCS: 36415; 70450; 76705; 80048; 80053; 80074; 81001; 82140; 83735; 84100; 85025; 85027; 85610; 90715; 93005; 93010; 96361; 96374; 96375; 96376; 99285; J1100; J1953; J2060; J2405; J3360; J3411; J3490; J7030; J7050

== ENCOUNTER → 2018-02-15 | Outpatient (CLI) | payer OTHER ==
[2018-02-15 09:31] LABS: ABSOLUTE EOSINOPHILS # (AUTO) 0.1 10^3/uL (0.0-0.6); ABSOLUTE LYMPHOCYTES (AUTO) 1.5 10^3/uL (0.5-4.7); ABSOLUTE MONOCYTES (AUTO) 0.4 10^3/uL (0.1-1.4); BASOPHILS % (AUTO) 0.9 % (0-2); HEMATOCRIT 43.8 % (37.9-51.0); HEMOGLOBIN 14.9 g/dL (13.5-17.0); LYMPHOCYTES % (AUTO) 37.1 % (13-45); MEAN CORPUSCULAR HEMOGLOBIN 29.4 pg (27.0-33.4); MEAN CORPUSCULAR HGB CONC 33.9 g/dL (32.0-36.0); MEAN CORPUSCULAR VOLUME 87 fl (80-97); MONOCYTES % (AUTO) 9.7 % (3-13); PLATELET COUNT 105 10^3/uL (150-450); RED BLOOD COUNT 5.06 10^6/uL (4.35-5.55); RED CELL DISTRIBUTION WIDTH 13.3 % (11.5-14.0); SEGMENTED NEUTROPHILS % (AUTO) 50.3 % (42-78); TOTAL CELLS COUNTED % (AUTO) 100 %
[2018-02-15 09:51] LABS: ALANINE AMINOTRANSFERASE 45 U/L (21-72); ALBUMIN 4.2 g/dL (3.5-5.0); ALKALINE PHOSPHATASE 57 U/L (38-126); ANION GAP 8 (5-19); ASPARTATE AMINO TRANSFERASE 48 U/L (17-59); BILIRUBIN,DIRECT 0.2 mg/dL (0.0-0.4); BILIRUBIN,TOTAL 1.2 mg/dL (0.2-1.3); BLOOD UREA NITROGEN 17 mg/dL (7-20); CALCIUM 9.4 mg/dL (8.4-10.2); CARBON DIOXIDE 29 mmol/L (22-30); CHLORIDE 104 mmol/L (98-107); CHOLESTEROL 144.56 mg/dL (0-200); GLUCOSE 100 mg/dL (75-110); POTASSIUM 5.2 mmol/L (3.6-5.0); SODIUM 141.1 mmol/L (137-145); TOTAL PROTEIN 7.2 g/dL (6.3-8.2); TRIGLYCERIDES 41 mg/dL (<150)
[2018-02-15 10:02] LABS: DIRECT LDL 58 mg/dL (<100)
== END ==
LOC: OD 08:53
DX: E78.5 Hyperlipidemia, unspecified (principal)
CPT/HCPCS: 36415; 80053; 80061; 83036; 84153; 84443; 85025

== ENCOUNTER 2018-09-15 08:23 | Day surgery (SDC) | payer BC, OTHER ==
[2018-09-13 09:54] LABS: HEMOGLOBIN 14.8 g/dL (13.5-17.0); MEAN CORPUSCULAR HEMOGLOBIN 28.8 pg (27.0-33.4); MEAN CORPUSCULAR HGB CONC 33.7 g/dL (32.0-36.0); MEAN CORPUSCULAR VOLUME 86 fl (80-97); PLATELET COUNT 113 10^3/uL (150-450); RED BLOOD COUNT 5.15 10^6/uL (4.35-5.55); RED CELL DISTRIBUTION WIDTH 12.8 % (11.5-14.0); WHITE BLOOD COUNT 4.5 10^3/uL (4.0-10.5)
[2018-09-13 12:00] LABS: ANION GAP 11 (5-19); BLOOD UREA NITROGEN 18 mg/dL (7-20); CALCIUM 9.7 mg/dL (8.4-10.2); CARBON DIOXIDE 27 mmol/L (22-30); CHLORIDE 104 mmol/L (98-107); GLUCOSE 100 mg/dL (75-110); POTASSIUM 4.6 mmol/L (3.6-5.0); SODIUM 141.5 mmol/L (137-145)
[~2018-09-15 08:23] MED LIST: ACETAMINOPHEN 325 MG TABLET PO PRN; CEFAZOLIN 1 GM/D5W RTU 1 GM/50 ML RTUPB IV ONE; CEFAZOLIN 1 GM/D5W RTU 1 GM/50 ML RTUPB IV PRN; LACTATED RINGERS 1000 ML IV PRN; LIDOCAINE 0.5% INJ-PF (5 MG/ML) 50 ML SDV SUBCUT PRN
[2018-09-15] MEDS ORDERED: BUPIVACAINE HCL 0.25 % INJ/PF (2.5 MG/1 ML) 30 ML VIAL ONE (09:51)
[2018-09-15] MEDS ORDERED: BUPIVACAINE INJ/PF LIPOSOME/PF 266 MG/20 ML SDV ONE (09:51)
[2018-09-15] MEDS ORDERED: ONDANSETRON HCL INJ/PF 4 MG/2 ML SDV ONE (09:57)
[2018-09-15] MEDS ORDERED: MIDAZOLAM 2 MG/2 ML INJ ONE (09:57)
[2018-09-15] MEDS ORDERED: DEXAMETHASONE SOD PHOSPHATE INJ 4 MG/1 ML VIAL ONE (09:57)
[2018-09-15] MEDS ORDERED: PROPOFOL INJ 200 MG/20 ML VIAL IV ONE (09:57)
[2018-09-15] MEDS ORDERED: FENTANYL CITRATE INJ/PF 100 MCG/2 ML AMPUL ONE (09:57)
[2018-09-15] MEDS ORDERED: PROMETHAZINE HCL INJ 25 MG/1 ML VIAL IV PRN ×2 (10:50)
[2018-09-15] MEDS ORDERED: MORPHINE SULFATE 10 MG/ML INJ IV PRN (10:50)
[2018-09-15] MEDS ORDERED: FENTANYL CITRATE INJ/PF 100 MCG/2 ML AMPUL IV PRN ×2 (10:50)
[2018-09-15] MEDS ORDERED: MICROFIBRILLAR COLLAGEN 1 GM PACK ONE (11:45)
[2018-09-15] MEDS ORDERED: OXYCODONE-ACETAMINOPHEN 5-325 MG TABLET PO PRN (12:04)
--- NOTE | 2018-09-15 12:04 | Discharge Summary ---
Discharge Summary (SDC) - Discharge Final Diagnosis: Indirect left inguinal hernia Date of Surgery: 09/15/18 Discharge Date: 09/15/18 Condition: Good Treatment or Instructions: [facility] [address], [place] [address] Discharge Instructions: Open Abdominal Procedures (Hernia, Bowel Surgery) 1.General Information: a. DO NOT DRIVE a car or operative machinery for 1-2 weeks or as long as taking Narcotic pain medication. b. DO NOT consume alcohol, tranquilizers, sleeping medication, or any non- prescribed medication for 24 hours unless approved by your doctor or as long as taking pain medication. c. DO NOT make important decisions or sign any important papers for the first 24 hours after surgery. d. When discharged home the same day as surgery have a responsible person with you the first night. 2.Activity Restriction: 10 weeks; a. Avoid heavy lifting (> 10-15 lbs), straining abdominal muscles and sports, mowing lawn, vacuum flask cleaner and bending over a lot. b. Walking is important to avoid blood clots in the legs and deep breathing can prevent pneumonia. c. If it fine to go for walks, up and down steps, and ride in a car. 3.Treatment: a. You may shower in 24 hours, but you should not bathe in a tub or go swimming for 2 weeks. Leave skin glue intact c. Do not use oils, powders, or lotion on your incision. 4.Medications: a. You may take prescription tablets for pain if needed, one every 6 hours (_Toradol_). c. You may resume all normal medications unless a change is specified by your doctors. 5.Diet: a. If going home the same day as surgery start with clear liquids, and if you do well then advance to normal foods low inf fat and protein. Smaller portion size may be solis the first night. 6.Notify Physician If: a. Pain is not relieved by pain medication b. Persistent nausea and vomiting c. Chills, fever (above 101) d. Persistent bleeding or swelling at the operative site e. Unable to urinate for 6-8 hours f. Increased redness, drainage, or foul smelling discharge from incision 7. Follow Up Care: a. Please call our office to schedule an appointment with your doctor for 2 weeks. In the event of any postoperative problems or questions you may call our office during business hours or the On-Call surgeon through the caustic pump operator at [facility]. [facility] [phone] [facility] [phone] (Ask for the surgeon health care consultant) b. I understand the instructions for my postoperative care as described above and a copy has been given to me. Witness Patient/Significant Other Date Prescriptions: Ketorolac Tromethamine [Toradol 10 mg Tablet] 10 mg PO Q6HP PRN #20 tablet PRN Reason: Referrals: FRANK RIVERA MD [Primary Care Provider] - Discharge Diet: As Tolerated Discharge Activity: Balance Activity w/Rest, No Lifting Over 10 Pounds, No Lifting/Push/Pulling, Walk Frequently Report the Following to Your Physician Immediately: Nausea, Vomiting, Increase in Pain, Fever over 101 Degrees, Unusual Bleeding, Redness, Swelling, Warmth, Drainage-Foul Smelling
--- NOTE | 2018-09-15 12:10 | Operative Report ---
Operative Report DATE OF SURGERY: 09/15/18 PREOPERATIVE DIAGNOSIS: Left inguinal hernia POSTOPERATIVE DIAGNOSIS: Same, indirect, with cord lipomas OPERATION: 1. Left inguinal exploration. 2. Left inguinal herniorrhaphy with large Bard plug and overlay mesh prosthesis SURGEON: JAQUI BORJA INSURANCE CLAIMS REPRESENTATIVE: ARDEN LIANG ANESTHESIA: GA TISSUE REMOVED OR ALTERED: Cord lipomas x2 with hernia sac COMPLICATIONS: None ESTIMATED BLOOD LOSS: 10 cc INTRAOPERATIVE FINDINGS: See below PROCEDURE: The patient was seen in the preop holding area where the left inguinal area was marked. He was then taken to the main operating room where general anesthesia was induced. Arms were abducted, left groin clipped of additional hair, prepped and draped in sterile fashion. Surgical plan and surgical timeout were conducted. Landmarks identified, skin anesthetized with quarter percent Marcaine, a standard left inguinal herniorrhaphy incision was made with a #10 blade. Subcutaneous tissue, Neda's fascia divided with electrocautery. The external oblique aponeurosis was identified, anesthetized with additional quarter percent Marcaine, then the fascia opened along the direction of its fibers with a #10 blade and scissors. The superior and inferior fascial flaps were elevated, and the contents of the inguinal canal bluntly mobilized. The ilioinguinal and genitofemoral nerves were not seen throughout the dissection. We gently placed a Riley drain around the contents of the inguinal canal. The structures were elevated off of the medial aspect of the floor the canal which was intact although patulous. We now interrogated the contents within the Sherice drain. There was a large cord lipoma coming off laterally and this was mobilized completely from the vas deferens and testicular vessels. Adjacent to this more medially was another large lipoma which was mobilized from the cord structures as well, and then found to hernia sac. We opened up the sac and confirmed entry into the peritoneal cavity. This lipoma and sac combination was oversewn at its base with a 2-0 Vicryl suture in a pursestring fashion, and the lipoma and sac amputated. In a similar fashion the lateral lipoma was oversewn at its base with a 2-0 Vicryl suture. The lipoma was amputated with electrocautery. Both lipomas and sac were sent to pathology in a single container. The oversewn pedicles were allowed to retract in the retroperitoneum. We now cleaned up the inguinal canal of any residual fibrous tissue. Again the findings were significant for an intact inguinal floor medially, with a numerous internal inguinal ring lateral to the inferior epigastric vessels. We felt that a plug and overlay mesh repair would be appropriate for this medium size gentleman with a rather thin body type. We brought onto the field a non- large Bard plug and mesh prosthesis, checked for expiration and it was found to be safe for installation. The plug was now inverted into the internal inguinal ring lateral to the cord structures. We now affixed it to the floor the inguinal canal with 3-0 PDS sutures. We immediately noticed some bleeding coming from the floor of the inguinal canal at the site of the inferior lateral most suture. We observed this area briefly and then concluded that there was likely penetration of the femoral vessel or vessels. Therefore that suture was immediately removed, and the left inguinal ligament from an external perspective was elevated off of the common femoral artery. We followed the hematoma to the bleeding site. This was performed in a very garcia fashion with negligible blood loss. The small hematoma was bluntly dissected through and it was apparent that the bleeding was coming from a through and through stick to the anterior medial aspect of the common femoral artery. The common femoral artery was exposed to remove the residual piece of PDS suture, and the oversewed both the entrance and exit stick sites with 2 interrupted [id number] 5-0 Prolene sutures. The bleeding was immediately controlled. We were confident that this was the extent of the problem. We irrigated the area out, allowed the tissues to retract, and returned to the prosthesis instillation. 2 additional PDS sutures 0 were placed in the mesh to secure to the floor the inguinal canal; we now placed the patch overlay onto the floor the inguinal canal and secured it to Poupart's ligament and conjoined tendon with the 2 leaves of the mesh overlapping laterally, re-creating the new internal inguinal ring. Approximately 8-0 PDS sutures were used to secure the overlay mesh; Of note prior to the instillation of the overlay mesh, we closed a rent in the inguinal ligament with a running 0 Vicryl suture. We reinspected the infra inguinal region and found no evidence of bleeding. The operative repair was felt to be sound. The reconstructed inguinal ring was not too tight. The cord structures were returned to the anatomic position, external oblique aponeurosis closed along the direction of its fibers, Neda's fascia c losed with 2-0 Vicryl skin with 2-0 Vicryl, and skin with Dermabond glue. Approximately 20 cc of full-strength Exparel was deployed to the surrounding subcutaneous tissue. Patient tolerated procedure well, extubated, taken to recovery in stable condition The physician video library assistant, Ms. Rahman, provided assistance during this case by: Assisting retracting tissue, instillation of local anesthesia and closure of fascia and skin incisions.
[2018-09-15] MEDS ORDERED: OXYCODONE-ACETAMINOPHEN 5-325 MG TABLET ONE (12:50)
[2018-09-15 15:57] VITALS: BP 111/71
== END 2018-09-15 14:30 | disposition home or self-care (01) ==
LOC: OROUT 08:23
PROVIDERS: ATTEND Surgery
DX: K40.90 Unilateral inguinal hernia, without obstruction or gangrene, not specified as recurrent (principal); D17.6 Benign lipomatous neoplasm of spermatic cord; F10.21 Alcohol dependence, in remission; Z86.010 Personal history of colon polyps; Z79.899 Other long term (current) drug therapy
CPT/HCPCS: 36415; 85027; 80048; 88302 ×2; 49505; C1781; J2250; J0690; J1100; J3010; J2405; J3490; J2704; C9290; 830